=== PATIENT | female | born 2000 | race Caucasian/White ===

== ENCOUNTER 2020-09-03 15:12 | Outpatient (REF) | payer OTHER, SELFPAY ==
--- NOTE | ~2020-09-03 | XR_ITS ---
EXAMINATION: XR CHEST CLINICAL INFORMATION: Epigastric pain COMPARISON: Chest radiographs 04/22/2018 TECHNIQUE: 2 views of the chest were obtained. FINDINGS: The lungs are clear. There is no airspace consolidation, pleural reaction, or effusion. No pneumothorax or pneumomediastinum. No free air beneath the diaphragms. The heart is normal in size. The costophrenic sulci are clear. The hilar and mediastinal contours and bony structures are unremarkable. XR/XR chest 2V IMPRESSION: Unremarkable examination.
[2020-09-03 16:40] LABS: MANUAL DIFF FLAG NO
[2020-09-03 16:51] LABS: Basophils Percent Auto 0.4 % (0-2); Eosinophils Absolute Auto 0.4 X10*3/uL (0.0-0.4); Eosinophils Percent Auto 4.3 % (0-4); Hematocrit 40.6 % (37-47); Hemoglobin 13.2 g/dl (12.0-16.0); Imm Gran Abs Auto 0.02 X10*3/uL (0.00-0.03); Imm Gran Pct Auto 0.2 % (0.0-0.4); Lymphocytes Absolute Auto 1.8 X10*3/uL (1.2-4.9); Lymphocytes Percent Auto 22.8 % (20-40); Mean Corpuscular HGB Conc 32.5 g/dl (31.0-35.0); Mean Corpuscular Hemoglobin 29.1 pg (27.0-33.0); Mean Corpuscular Volume 89.6 fL (80-98); Mean Platelet Volume 12.1 fL (9.4-12.3); Monocytes Absolute Auto 0.6 X10*3/uL (0.1-1.2); Monocytes Percent Auto 7.3 % (2-11); Neutrophils Absolute Auto 5.2 X10*3/uL (2.0-8.3); Platelet Count 216 X10*3/uL (160-400); Red Blood Count 4.53 X10*6/uL (4.20-5.50); Red Cell Distribution Width 12.7 % (11.0-16.0); White Blood Count 8.1 X10*3/uL (4.8-10.8)
[2020-09-03 16:58] LABS: Alanine Aminotransferase 12 U/L (0-31); Albumin Level 4.3 g/dL (3.5-5.0); Alkaline Phosphatase 64 U/L (39-117); Anion Gap 14 (12-20); Aspartate Amino Transferase 17 U/L (5-31); Bilirubin Total 0.3 mg/dL (0.0-1.0); Blood Urea Nitrogen 13 mg/dL (9-16); Calcium 8.9 mg/dL (8.4-10.2); Carbon Dioxide 23 mmol/L (22-29); Chloride 108 mmol/L (96-108); Estimated Glomerular Filt Rate > 60; Glucose Random 85 mg/dL (60-115); Potassium 4.8 mmol/L (3.3-5.1); Sodium 140 mmol/L (135-145); Total Protein 6.9 g/dL (6.5-8.0)
[2020-09-03 17:20] LABS: TSH reflex Free T4 0.96 uIU/mL (0.32-4.0)
== END 2020-09-03 15:13 | disposition home or self-care (01) ==
LOC: HO.HMGCX 15:12
PROVIDERS: Visit Provider Nurse Practitioner Family
DX: R10.13 Epigastric pain (principal)
CPT/HCPCS: 36415; 71046; 80053; 84443; 85025

== ENCOUNTER 2020-11-30 13:41 | Outpatient (REF) | payer OTHER, SELFPAY ==
[2020-11-30 16:34] LABS: MANUAL DIFF FLAG NO
[2020-11-30 16:37] LABS: Basophils Percent Auto 0.3 % (0-2); Eosinophils Absolute Auto 0.2 X10*3/uL (0.0-0.4); Eosinophils Percent Auto 2.5 % (0-4); Hematocrit 41.2 % (37-47); Hemoglobin 13.4 g/dl (12.0-16.0); Imm Gran Abs Auto 0.02 X10*3/uL (0.00-0.03); Imm Gran Pct Auto 0.3 % (0.0-0.4); Lymphocytes Absolute Auto 1.9 X10*3/uL (1.2-4.9); Lymphocytes Percent Auto 23.3 % (20-40); Mean Corpuscular HGB Conc 32.5 g/dl (31.0-35.0); Mean Corpuscular Hemoglobin 28.9 pg (27.0-33.0); Mean Platelet Volume 12.7 fL (9.4-12.3); Monocytes Absolute Auto 0.6 X10*3/uL (0.1-1.2); Monocytes Percent Auto 7.1 % (2-11); Neutrophils Absolute Auto 5.3 X10*3/uL (2.0-8.3); Neutrophils Percent Auto 66.5 % (45-73); Platelet Count 228 X10*3/uL (160-400); Red Blood Count 4.63 X10*6/uL (4.20-5.50); Red Cell Distribution Width 13.2 % (11.0-16.0); White Blood Count 7.9 X10*3/uL (4.8-10.8)
[2020-11-30 17:29] LABS: Vitamin D 25-OH Total 12.7 ng/mL (>30)
[2020-11-30 17:45] LABS: Folate 13.5 ng/mL (> or = 4.0); Vitamin B12 522 pg/mL (200-900)
== END 2020-11-30 13:42 | disposition home or self-care (01) ==
LOC: HO.HMGCLDS 13:41
PROVIDERS: PCP Internal Medicine; Visit Provider Internal Medicine
DX: E55.9 Vitamin D deficiency, unspecified (principal); Z83.49 Family history of other endocrine, nutritional and metabolic diseases
CPT/HCPCS: 36415; 82306; 82607; 82746; 85025

== ENCOUNTER → 2021-01-18 12:38 | Outpatient (BNVA) | payer OTHER, SELFPAY | PROVIDERS: PCP Internal Medicine; Referring Provider Internal Medicine; Visit Provider Nurse Practitioner | DX: R13.10 Dysphagia, unspecified (principal); K59.04 Chronic idiopathic constipation; R14.0 Abdominal distension (gaseous); R10.33 Periumbilical pain; Z79.899 Other long term (current) drug therapy | CPT/HCPCS: 99202 ==

== ENCOUNTER 2021-02-05 08:56 | Outpatient (REF) | payer OTHER, SELFPAY ==
--- NOTE | ~2021-02-05 | US_ITS ---
EXAMINATION: US ABDOMEN COMPLETE CLINICAL INFORMATION: Chronic idiopathic constipation. Right upper quadrant pain. Epigastric pain. GERD. COMPARISON: None TECHNIQUE: Real-time imaging of the abdominal viscera. FINDINGS: PANCREAS: Normal. ABDOMINAL AORTA: The proximal, mid, and distal segments are normal in caliber. INFERIOR VENA CAVA: Visualized portions are normal. LIVER: Normal. The liver is normal in size. The liver contour is normal. Parenchymal echogenicity is normal. No focal hepatic lesion. There is no intrahepatic biliary duct dilatation seen. GALLBLADDER: The gallbladder is unremarkable in appearance. No gallstones identified. No gallbladder wall thickening or pericholecystic fluid identified. Negative sonographic Álvarez's sign. COMMON BILE DUCT: Normal in caliber measuring 0.42 cm in diameter. RIGHT KIDNEY: Normal. No hydronephrosis. No renal calculi or focal parenchymal lesions. The kidney measures 10.5 cm in maximum dimension. LEFT KIDNEY: Normal. No hydronephrosis. No renal calculi or focal parenchymal lesions. The kidney measures 12.2 cm in maximum dimension. SPLEEN: Normal. The spleen measures 8.1 cm in maximum dimension. FREE FLUID: None. US/US abdomen complete IMPRESSION: Unremarkable sonographic imaging of the abdomen.
== END 2021-02-05 08:57 | disposition home or self-care (01) ==
LOC: HO.HMGCX 08:56
PROVIDERS: PCP Internal Medicine; Visit Provider Nurse Practitioner
DX: R13.10 Dysphagia, unspecified (principal); K59.04 Chronic idiopathic constipation
CPT/HCPCS: 76700

== ENCOUNTER 2021-03-19 09:57 | Outpatient (REF) | payer OTHER, SELFPAY ==
--- NOTE | ~2021-03-19 | FL_ITS ---
EXAMINATION: XR UPPER GI SERIES WITH SMALL BOWEL CLINICAL INFORMATION: Chronic idiopathic constipation. COMPARISON: None. TECHNIQUE: Air-contrast upper GI examination with small bowel follow-through. FINDINGS: Preliminary abdominal study demonstrates a nonspecific bowel gas pattern without evidence of dilated large or small bowel loops. Psoas margins are intact. Stool and gas is seen throughout a nondilated colon. No abnormal calcifications identified. No bony abnormalities appreciated. There is normal apposition of the vocal cords while saying E . There is normal elevation of the soft palate while saying candy . Patient drank thin and thick barium and a half-inch diameter barium tablet without difficulty. There is no evidence of gastroesophageal reflux or tracheal aspiration. No cricopharyngeal hypertrophy. No Zenker's diverticulum. The esophagus had normal distensibility without ulceration or persistent stricture. There was noted to be a patulous gastroesophageal junction with some mild transient reflux elicited during the study. The stomach demonstrated normal distensibility without abnormal mass or ulceration. There is no delay in gastric emptying. The duodenal bulb and sweep appear unremarkable. Evaluation of small bowel demonstrated normal mucosal pattern within the jejunum and ileum. No persistent stricture identified. The terminal ileum appeared unremarkable. FLUOROSCOPY TIME: 1.6 minutes DOSE AREA PRODUCT: 5.346 Gy-cm2 (garcia-centimeter squared) FL/FL upper GI small bowel IMPRESSION: Patulous gastroesophageal junction with mild transient reflux. Otherwise unremarkable air-contrast upper GI examination and small bowel follow-through.
== END 2021-03-19 09:58 | disposition home or self-care (01) ==
LOC: HO.XRAY 09:57
PROVIDERS: Visit Provider Nurse Practitioner
DX: R13.10 Dysphagia, unspecified (principal); K59.04 Chronic idiopathic constipation
CPT/HCPCS: 74240; 74248

== ENCOUNTER 2021-04-29 14:00 | Outpatient (REF) | payer OTHER, SELFPAY | END 2021-04-29 14:01 | disposition home or self-care (01) | LOC: HO.LNP 14:00 | PROVIDERS: Visit Provider Nurse Practitioner | DX: R13.10 Dysphagia, unspecified (principal); R10.33 Periumbilical pain; K59.04 Chronic idiopathic constipation; R14.0 Abdominal distension (gaseous); K21.9 Gastro-esophageal reflux disease without esophagitis; R11.0 Nausea | CPT/HCPCS: 87338; 99212 ==

== ENCOUNTER 2021-06-18 12:47 | Outpatient (REF) | payer OTHER, SELFPAY ==
--- NOTE | ~2021-06-18 | XR_ITS ---
EXAMINATION: XR ABDOMEN COMPLETE CLINICAL INDICATION: Chronic idiopathic constipation COMPARISON: None TECHNIQUE: Supine and upright views of the abdomen and pelvis FINDINGS: There is stool throughout the colon. There are no dilated loops of bowel or air-fluid levels to suggest obstruction. There is no evidence of free air. There are no calcifications. Bony structures are normal. XR/XR abdomen min 2V IMPRESSION: Stool throughout the colon suggestive of constipation.
== END 2021-06-18 12:48 | disposition home or self-care (01) ==
LOC: HO.HMGCX 12:47
PROVIDERS: Visit Provider Internal Medicine
DX: K59.04 Chronic idiopathic constipation (principal)
CPT/HCPCS: 74019

== ENCOUNTER → 2021-09-05 13:29 | Outpatient (BNVA) | payer OTHER, SELFPAY | PROVIDERS: PCP Internal Medicine; Referring Provider Internal Medicine; Visit Provider Internal Medicine Gastroenterology | DX: K59.04 Chronic idiopathic constipation (principal); R11.0 Nausea; R10.33 Periumbilical pain; R14.0 Abdominal distension (gaseous); R13.10 Dysphagia, unspecified; K21.9 Gastro-esophageal reflux disease without esophagitis; E55.9 Vitamin D deficiency, unspecified | CPT/HCPCS: 99212 ==

== ENCOUNTER 2021-09-27 14:50 | Outpatient (REF) | payer OTHER, SELFPAY ==
--- NOTE | ~2021-09-27 | XR_ITS ---
EXAMINATION: XR ABDOMEN KUB CLINICAL INDICATION: Constipation COMPARISON: Previous x-ray May 2021 TECHNIQUE: AP view of the abdomen. FINDINGS: There is stool throughout the colon. There are no dilated loops of bowel to suggest obstruction. There is no evidence of free air. No calcifications. Normal bony structures. XR/XR KUB IMPRESSION: Stool throughout the colon. No evidence of obstruction.
== END 2021-09-27 14:51 | disposition home or self-care (01) ==
LOC: HO.XRAY 14:50
PROVIDERS: PCP Internal Medicine; Visit Provider Internal Medicine Gastroenterology
DX: K59.04 Chronic idiopathic constipation (principal)
CPT/HCPCS: 74018

== ENCOUNTER → 2021-10-17 07:26 | Outpatient (BNVA) | payer OTHER, SELFPAY | PROVIDERS: PCP Internal Medicine; Referring Provider Internal Medicine; Visit Provider Internal Medicine Gastroenterology | DX: K59.04 Chronic idiopathic constipation (principal); R14.0 Abdominal distension (gaseous); K21.9 Gastro-esophageal reflux disease without esophagitis; R13.10 Dysphagia, unspecified; R10.33 Periumbilical pain; R11.0 Nausea; Z79.899 Other long term (current) drug therapy | CPT/HCPCS: 99212 ==

== ENCOUNTER 2021-10-21 08:05 | Day surgery (SDC) | payer OTHER, SELFPAY ==
--- NOTE | 2021-10-18 13:56 | HO.ANESPROP2 ---
Documented by User: Richa Garcia NP 10/18/21 13:57 HPI - Anesthesia Eval Consult details Narrative: 20yo F for Colonoscopy [facility] Active Problems Active Problems: All Active Problems (Updated 04/29/21 @ 17:19 by CSASIE Kitchen) Nausea (Acute) Periumbilical abdominal pain (Acute) Abdominal bloating (Acute) Dysphagia (Acute) Chronic idiopathic constipation (Acute) Family history of thyroid disease in mother (Acute) Vitamin D deficiency (Acute) Chronic GERD (Acute) Cough (Acute) Throat irritation (Acute) Past Medical History Medical History Chronic GERD Epigastric pain Family history of thyroid disease in mother Right upper quadrant abdominal pain Vitamin D deficiency Family History Family History Mother Hypothyroidism Surgical History Surgical History No pertinent past surgical history Social History Social History Housing: House Patient Tobacco Use Status: Never used Tobacco e-Cigarette/Vaping Use: Never Used Second Hand Smoke Exposure: No Use of substances other than those prescribed or required for medical reasons: No Are you DNR?: No Advance Directives: No Advance Directives Information Provided: Yes Recently lost weight without trying: No Nutrition Risks: No Nutritional Risk service: No Current occupational status: employed and student Current occupational exposures/hazards: No Meds Allergies Allergy/AdvReac Type Severity Reaction Status Date / Time No Known Allergies Allergy Verified 10/17/21 07:31 Exam Exam Date and Time: October 18, 2021 1356 Assessment and Plan Assessment Anesthesia Assessment: Chart Reviewed Documented by User: Carin Maya MD 10/21/21 09:41 PMFSH Past Medical History Medical History Chronic GERD Epigastric pain Family history of thyroid disease in mother Right upper quadrant abdominal pain Vitamin D deficiency Family History Family History Mother Hypothyroidism Family history of problems with anesthesia: No Surgical History Surgical History No pertinent past surgical history History of Problems with Anesthesia: No Social History Social History Housing: House Patient Tobacco Use Status: Never used Tobacco e-Cigarette/Vaping Use: Never Used Second Hand Smoke Exposure: No Use of substances other than those prescribed or required for medical reasons: No Are you DNR?: No Advance Directives: No Advance Directives Information Provided: Yes Recently lost weight without trying: No Nutrition Risks: No Nutritional Risk service: No Current occupational status: employed and student Current occupational exposures/hazards: No Meds Allergies Allergy/AdvReac Type Severity Reaction Status Date / Time No Known Allergies Allergy Verified 10/17/21 07:31 Exam Airway Mallampati Class: II TM Dist: >3cm Neck ROM: Full Heart: rrr Lungs: cta Assessment and Plan Assessment Anesthesia Assessment: Anesthesia Plan Discussed and Chart Reviewed Final Anesthetic Review Family History of Problems with Anesthesia: No History of Problems with Anesthesia: No NPO: Yes ASA Class: III Final Preanesthetic Review: No Changes in Pt Med Stat, Meds/Allgs Chart Reviewed and Consent Obtained/Reviewed Patient Risk: Intermediate Procedure Risk: Intermediate Anesthetic Plan Anesthetic Plan: MAC: Disposition: Standard PACU
[2021-10-21 08:29] VITALS: BMI 21.7
[2021-10-21 08:39] LABS: UPreg QC Valid YES; Urine Pregnancy NEGATIVE (NEGATIVE)
[2021-10-21 08:44] VITALS: BP 134/78; PULSE 112; RESP 16; TEMP 37.8; O2SAT 100
[2021-10-21 08:56] VITALS: PULSE 98
[2021-10-21] MEDS: Lactated Ringers 1,000 ML 100 ML IVCONT (08:56)
--- NOTE | 2021-10-21 09:34 | MHC.SHP ---
Pre-Procedural Eval Section A Date of Service: 10/21/21 The patient is an INPATIENT: No Changes since office visit: No Cold of Flu in the past 2 weeks, No New Medical Problems and No Changes in Medication The History & Physical has been completed within 30 days and I have reviewed it.: Yes Section B Chief Complaint: Periumbilical pain,nausea,constipation,abd distens Allergies: Allergies Allergy/AdvReac Type Severity Reaction Status Date / Time No Known Allergies Allergy Verified 10/17/21 07:31 Plan I have reviewed the history and physical and performed a pertinent physical examination on my patient. No changes have occurred unless specified.
--- NOTE | 2021-10-21 09:43 | P.OP_ITS ---
Operative Note Operative Note Date of Service: 10/21/21 Narrative: Pre-op diagnosis: Chronic constipation Post-op diagnosis:?other (Colon polyp, hemorrhoids) Procedure: COLONOSCOPY TILL CECUM WITH BIOPSIES AND SNARE POLYPECTOMY Consent: Indications for the procedure and potential complications of bleeding, perforation, reaction to medications and missed diagnosis were discussed with the patient and informed consent was obtained. Instrument: Olympus PCF H 190 L variable stiffness pediatric colonoscope Monitoring: Vital signs and clinical assessment, intermittent blood pressure monitoring, continuous EKG monitoring, Pulse oximetry and Carbon Dioxide monitoring were done throughout the procedure. Colon withdrawl time was 34 minutes. Procedure: The patient was placed in the left lateral decubitis position and pre-procedure medications were administered. After a digital rectal examination of the ano-rectum, the video colonoscope was inserted into the rectum and advanced through the colon to the cecum. The colonoscope was slowly withdrawn in a retrograde panoramic fashion and the colon mucosa was carefully examined including a retroflexed view of the rectum. Findings and interventions are described below. Procedure Difficulty:? Colon was long and tortuous and there was some loop formation - no maneuvers were referred Findings: Terminal Ileum: Not evaluated Cecum:? Normal Ascending Colon:? Normal Transverse Colon:? Normal Descending Colon:? Normal Sigmoid Colon:? A 7-8 mm sessile polyp removed with a cold snare. Rectum:? Normal Ano-rectum:? Small internal hemorrhoids Colon preparation: Excellent ? Impression and Post Procedure Diagnosis: Colonoscopy Findings: One small polyp removed Biopsies were obtained from the distal rectum to check for Hirschsprung's disease Small hemorrhoids on retroflexed exam. Plan: Patient has an appointment on 11/11/21 in the GI Clinic with Lavinia Yanez M.D. Continue Linzess 290 mcg daily for constipation Repeat Colonoscopy interval based on path results - in 5 years if polyps are adenomatous and 10 years if polyps are hyperplastic. Above findings were reviewed with the patient and colon polyps handout was given in the discharge area Surgeon: Lavinia Yanez MD Anesthesia:?MAC (Dr Bocanegra) Was an Director Strategic Account Management used for this Procedure?:?No Estimated blood loss (mL):?0 Pathology:?other ( A: sigmoid polyp? B: rectal biopsy) Condition:?stable Disposition:?PACU
[2021-10-21 10:33] VITALS: BP 98/62; PULSE 75; RESP 16; TEMP 36.4; O2SAT 100
[2021-10-21 10:48] VITALS: BP 113/74; PULSE 77; RESP 16; TEMP 36.4; O2SAT 100
== END 2021-10-21 11:15 | disposition home or self-care (01) ==
PROVIDERS: Nurse Practitioner; PCP Internal Medicine; Visit Provider Internal Medicine Gastroenterology
PROC: 0DJD8ZZ Inspection of Lower Intestinal Tract, Via Natural or Artificial Opening Endoscopic (ICD-10-PCS; CPT 45378; principal; 2021-10-21 09:20)
DX: K59.04 Chronic idiopathic constipation (principal); K63.5 Polyp of colon; K64.8 Other hemorrhoids; K21.9 Gastro-esophageal reflux disease without esophagitis; R14.0 Abdominal distension (gaseous); R13.10 Dysphagia, unspecified; R11.0 Nausea; R10.33 Periumbilical pain; E55.9 Vitamin D deficiency, unspecified; Z79.899 Other long term (current) drug therapy
CPT/HCPCS: 45385; 45380; 81025; 88305; 88342

== ENCOUNTER → 2021-11-11 07:14 | Outpatient (BNVA) | payer OTHER, SELFPAY | PROVIDERS: PCP Internal Medicine; Referring Provider Internal Medicine; Visit Provider Internal Medicine Gastroenterology | DX: K59.04 Chronic idiopathic constipation (principal); K21.9 Gastro-esophageal reflux disease without esophagitis; R10.33 Periumbilical pain; R11.0 Nausea; R14.0 Abdominal distension (gaseous); E55.9 Vitamin D deficiency, unspecified; Z79.899 Other long term (current) drug therapy | CPT/HCPCS: 99212 ==

== ENCOUNTER 2022-10-23 07:27 | Outpatient (AMB) | payer OTHER, SELFPAY ==
--- NOTE | 2022-10-23 07:35 | A.OFFVIS_ITS ---
Intake Vital Signs 10/23/22 07:39 Height 5 ft 3 in Weight 124 lb BMI 22.0 BP 107/64 Blood Pressure Location Lt brachial Position Sitting Pulse 93 Intake Visit Reasons: follow up Intake Note: Patient follow up for abdominal bloating. Patient cc: abdominal bloating with some pain, and GERD on and off with burning sensation. Denies any other GI issues. Dynamic Balancer Set Up Worker Required: No Accompanied by: Father Allergies No Known Allergies Allergy (Verified 10/23/22 07:37) Medication List - Last Reconciled 10/23/22 by Lavinia Yanez MD cholecalciferol (vitamin D3) 250 mcg PO 2XW 90 days famotidine 20 mg PO BID 30 days linaclotide (Linzess) 290 mcg PO QAM 30 days simethicone (Gas Relief 80 (simethicone)) 80 mg PO TID-QID PRN 30 days HPI follow up HPI Details GI clinic visit for this 20 year old [place] female here for FU of chronic constipation. Pt has been followed by Connie Lynn since 12/[facility] Reviewed - normal CBC, TSH, Vitamin B12 and low Vitamin D IMAGING STUDIES:? 09/27/21 FARIHA SHOWED: There is stool throughout the colon. There are no dilated loops of bowel to suggest obstruction. There is no evidence of free air. No calcifications. Normal bony structures. 05/2021 KUB showed: There is stool throughout the colon. There are no dilated loops of bowel or air-fluid levels to suggest obstruction. There is no evidence of free air. There are no calcifications. Bony structures are normal. 02/2021 UGISBFT showed: Patulous gastroesophageal junction with mild transient reflux. Otherwise unremarkable air-contrast upper GI examination and small bowel follow-through.? ENDOSCOPIC STUDIES:? 10/21/21 COLONOSCOPY SHOWED: One small polyp removed Biopsies were obtained from the distal rectum to check for Hirschsprung's disease Small hemorrhoids on retroflexed exam. Plan:? Repeat Colonoscopy interval based on path results - in 5 years if polyps are adenomatous and 10 years if polyps are hyperplastic. TODAY'S VISIT: Pt is accompanied by her Dad. Notes persistent abdominal bloating even if she empties her bowel. Having a bowel movement every 3 days with hard stools. Takes Linzess 3-4 times a week (forgets to take it on some days) Colonoscopy results reviewed. Constipation is better. Has a BM daily to every other day. Continues to have some bloating though less than before. Notes intermittent heartburn - tried Omeprazole in the past and it was'nt helpful. Has not tried Pepcid or famotidine. Feels a little better since she started taking Linaclotide. Her Mom tried to use an enema and pt refused. Has not tried a suppository. Was having a BM every 3 days (not emptying out completeley) when she started taking the Linzess Bloating had improved. Constipation is worse when she is at school and associates worsening co nstipation with increased stress and anxiety. PAST VISIT: Constipation for the past 6 months. Hx of regurgitation after feeding as a baby. Improved after 6 months. Did not gain weight. She was having a small BM every 3 days.5 days ago with incomplete evacuaton. Notes difficulty expelling the stool. Has a BM every 2-3 weeks despite taking the Senna. Took enemas 2-3 times (worked 1st 2 times and did not work the 3rd time). Taking Senna intermittently. Has intermittent heartburn.Notes vomiting when she has Migraine BOONE Has tried lactulose (no response), senna and Miralax with partial response. Enemas worked best. Patient denies symptoms of dysphagia, nausea, change in appetite or weight.? Denies recent change in bowel habits, diarrhea, or rectal bleeding. Notes black stools when she is constipated for a long time. Patient denies major cardiac or pulmonary problems, loud snoring or sleep apnea Denies having any surgeries in the past. Denies being on chronic anticoagulation. A brother has chronic constipation. Patient denies known family history of colon polyps, colon cancer or other GI malignancies. A paternal aunt diagnosed with intestinal cancer at 75 yrs. PAST GI HISTORY BY REVIEW OF MEDICAL RECORDS: Last seen by Connie Lynn NP in Apr, 2021: She is here today with her father. She did not get the senna, she was taking her brother's Miralax - but it is not helping her enough. While she tries to move her bowels several times a day. only tiny amts come out. She is still having bloating and nausea.? Her lack of series bowel movement is why she did not return the H pylori stool earlier but they did give it to the lab today. I think the senna was not covered by insurance. I write it down for her father, and explain the tests and my reasoning for the treatment plan. This takes some education, as they just want to know what is wrong with her colon. I explain that this is hereditary, the colon may be longer: but there is no severe pathology as evidenced by the small bowel follow through study. They ask about the GERD and I explain this. Again, PPI therapy made her nauseated. We could consider H2 going forward, but getting the bowels moving likely will improve this given the low level of reflux. If we get her bowels moving and her nausea is not improved, I explain we may need to do an EGD. Her father says they have sought help from many providers, so there is a level of frustration in the last of progress in treating her. This is very life limiting for her, and I am very sympathetic to this and aware of the impact on her life and?school [facility] Medical History Chronic GERD Epigastric pain Family history of thyroid disease in mother Right upper quadrant abdominal pain Vitamin D deficiency Surgical History Hx of colonoscopy No pertinent past surgical history Family History Mother Hypothyroidism Social History Housing: House Patient Tobacco Use Status: Never used Tobacco e-Cigarette/Vaping Use: Never Used Second Hand Smoke Exposure: No service: No Current occupational status: employed and student Current occupational exposures/hazards: No Review of Systems Const All systems reviewed & are unremarkable except as noted in HPI and below Physical Exam Vital Signs: Last Vital Signs Pulse 93 10/23/22 07:39 BP 107/64 10/23/22 07:39 BMI result Body Mass Index 22.0 Const General: healthy appearing and no acute distress Nutritional Appearance: average body habitus Orientation/consciousness: patient oriented x3 Limitations: no limitations HEENT Head: Yes normal to inspection Ears: hearing grossly normal bilaterally Eyes Sclerae: sclerae normal Pupils: Equal, round and reactive pupils present Neck Neck: Yes normal visual inspection Chest Chest palpation & inspection: normal inspection of the chest Resp Effort & Inspection: normal respiratory effort Auscultation: clear to auscultation bilaterally Cardio Palpation: normal PMI Rate: regular rate Rhythm: regular rhythm Heart sounds: S1 normal heart sound present, S2 normal heart sound present and no murmurs GI Palpation (GI): Soft to palpation, nontender and No hepatosplenomegaly present Auscultation: normal bowel sounds Rectal Exam - Female: deferred Skin General skin exam: no rashes or lesions noted Neuro General: patient oriented x3, gait normal and moves all extremities Cranial nerves: Yes Equal, round and reactive pupils present Psych Appearance: grossly normal Mental Status: mental status grossly normal Assessment & Plan Assessment & Plan (1) Chronic GERD: Code(s): K21.9 - Gastro-esophageal reflux disease without esophagitis (2) Vitamin D deficiency: Code(s): E55.9 - Vitamin D deficiency, unspecified (3) Chronic idiopathic constipation: Code(s): K59.04 - Chronic idiopathic constipation (4) Abdominal bloating: Code(s): R14.0 - Abdominal distension (gaseous) Plan 21 YF followed in GI for nausea, GERD, abdominal bloating and Constipation for t he past 6 months. Hx of regurgitation after feeding as a baby which improved after 6 months. Notes difficulty expelling the stool. Has intermittent heartburn.? Notes vomiting when she has Migraine BOONE Has tried lactulose (no response), senna and Miralax with partial response. Enemas worked best. Chronic constipation likely due to colonic inertia or dyssynergic defecation.? Sitz marker study was ordered and KUB was performed. She was advised to increase Linzess to 290 mcg daily and use suppositories prn.? Had a BM every 2-3 weeks despite taking the Senna - improved to daily/every other day after taking Linzess. Patient advised to switch to lactated milk for 2-3 weeks to see if bloating resolves.? If she continued to have symptoms, she was advised to follow a FODMAP diet - handout on FODMAP diet was provided to the patient. 10/23/22 Pt has graduated and is looking for a job. Advised to take Linzess daily and schedule an anorectal manometry at [facility] to rule out dyssynergic defecation/outlet delay. FU in 4 months Orders: Referrals Gastroenterology Referral K59.04 - Chronic idiopathic constipation Medications: New bisacodyl (Dulcolax (bisacodyl)) Take 2 tablets at 12 pm 10 mg (2 x 5 mg) PO ONCE 2 tabs 0RF 1 day polyethylene glycol 3350 (Miralax) Mix Miralax with 64 oz(8 cups) of Crystal light. Take 2 tablets of Dulcolax qt 12 pm. Wait to have your 1st bowel movement, then begin drinking Miralax. Drink a glass of Miralax every 10-15 minutes until you are finished. You will drink at least another 4 cups of clear liquid of your choice over the next 2 hours. Please drink as many clear liquids as possible 17 grams PO DAILY 238 grams 0RF 1 day Coding Level of Care Code Est Pt Level 4 (46497) Diagnoses Chronic GERD K21.9 Vitamin D deficiency E55.9 Chronic idiopathic constipation K59.04 Abdominal bloating R14.0 Time Spent (min) 25
[2022-10-23 07:39] VITALS: BP 107/64; PULSE 93; BMI 22.0
== END 2022-10-23 08:22 | disposition home or self-care (01) ==
PROVIDERS: Visit Provider Internal Medicine Gastroenterology
DX: K21.9 Gastro-esophageal reflux disease without esophagitis (principal); E55.9 Vitamin D deficiency, unspecified; K59.04 Chronic idiopathic constipation; R14.0 Abdominal distension (gaseous)
CPT/HCPCS: 99214

== ENCOUNTER → 2022-10-23 07:27 | Outpatient (BNVA) | payer OTHER, SELFPAY | PROVIDERS: Visit Provider Internal Medicine Gastroenterology | DX: K21.9 Gastro-esophageal reflux disease without esophagitis (principal); K59.04 Chronic idiopathic constipation; E55.9 Vitamin D deficiency, unspecified; R14.0 Abdominal distension (gaseous) | CPT/HCPCS: 99212 ==

== ENCOUNTER 2023-01-13 10:26 | Outpatient (AMB) | payer OTHER, SELFPAY ==
[2023-01-13 10:33] VITALS: BP 118/66; PULSE 106; O2SAT 99; BMI 21.8
--- NOTE | 2023-01-13 10:33 | A.OFFPC_ITS ---
Vital Signs 01/13/23 10:33 Height 5 ft 3 in Weight 123 lb 4 oz BMI 21.8 BP 118/66 Blood Pressure Location Rt brachial Position Sitting Pulse 106 H Pulse Source Pulse Oximeter Pulse Oximetry (%) 99 Oxygen Delivery Method Room Air Intake Visit Reasons: Physical Exam NEEDS PHQ9 + THRIVE Allergies No Known Allergies Allergy (Verified 10/23/22 07:37) Medication List - Last Reconciled 01/13/23 by Momo Wright MD bisacodyl (Dulcolax (bisacodyl)) 10 mg (2 x 5 mg) PO ONCE 1 day cholecalciferol (vitamin D3) 250 mcg PO 2XW 90 days famotidine 20 mg PO BID 30 days linaclotide (Linzess) 290 mcg PO QAM 30 days polyethylene glycol 3350 (Miralax) 17 grams PO DAILY 1 day simethicone (Gas Relief 80 (simethicone)) 80 mg PO TID-QID PRN 30 days Tobacco use date assessed: 11/30/20 HPI Physical Exam NEEDS PHQ9 + THRIVE HPI Details Patient is 22-year-old female came in today for her 1st initial physical exam and establish care I see that she is established with gastroenterology Dr. [facility] for chronic epigastric discomfort She was prescribed omeprazole which caused nausea and vomiting so she did not take that She does have full motor Balbir in her medication list which was prescribed by electrocardiograph operator last year but patient is not taking it Explained to patient that it is important that she take the medication as prescribed I have sent famotidine 20 mg once a day she has an appointment coming up with the gastroenterology. Patient does admit to feeling stress because of her job. And anxious. She agree to take medication today, I have sent Lexapro 5 mg patient is to start taking that 1 every day She is also complaining of feeling tired after walking short distance Her father is here as well who complains that patient is always telling that she is tired. Upon further questioning patient told me that she does have a heavy menstrual cycle which is chronic But she does not want to see OBGYN. I have ordered labs for the patient we will monitor B12 folate iron CBC and metabolic profile along with thyroid. She is to return in 3 weeks for follow-up appointment [facility] Medical History Family history of thyroid disease in mother Vitamin D deficiency Chronic GERD Right upper quadrant abdominal pain Epigastric pain Surgical History Hx of colonoscopy No pertinent past surgical history Family History Mother Hypothyroidism Social History Housing: House Patient Tobacco Use Status: Never used Tobacco e-Cigarette/Vaping Use: Never Used Second Hand Smoke Exposure: No service: No Current occupational status: employed and student Current occupational exposures/hazards: No Questionnaire PHQ-9 Over the last 2 weeks, how often have you been bothered by any of the following problems? 1. Little interest or pleasure in doing things: not at all 2. Feeling down, depressed, or hopeless: not at all 3. Trouble falling or staying asleep, or sleeping too much: not at all 4. Feeling tired or having little energy: more than half the days 5. Poor appetite or overeating: not at all 6. Feeling bad about yourself - or that you are a failure or have let yourself or your family down: not at all 7. Trouble concentrating on things, such as reading the newspaper or watching television: not at all 8. Moving or speaking so slowly that other people could have noticed. Or the opposite - being so fidgety or restless that you have been moving around a lot more than usual: not at all 9. Thoughts that you would be better off or of hurting yourself in some way: not at all Total score: 2 Depression Screening Interpretation: Negative Depression Screening Done: Yes 10269 - PHQ-9 Billing: Yes Source: Developed by Drs. Didier Brooks, Calli Ochoa, Rodrigo Crespo and colleagues, with an educational gopal from [employer]. Thrive Questionnaire Date Thrive assessed: 01/13/23 I am a: Patient What is your living situation today?: I have a steady place to live Within the past 12 months, did the food you bought not last and you didn't have the money to get more?: Never true Within the past 12 months, did you worry whether your food would run out before you got money to buy more?: Never true Do you have trouble paying for medicines?: No Do you have trouble getting transportation to medical appointments?: No Do you have trouble paying your heating and electricity bill?: No Do you have trouble taking care of your child, family member or friend?: No Do you have trouble with day-to-day activities such as bathing, preparing meals, shopping, managing finances, etc.?: No Are you currently unemployed and looking for a job?: No Are you interested in more education?: No JUSTA-7 AMB Questionnaire JUSTA-7 Date JUSTA - 7 assessed: 01/13/23 Feeling nervous, anxious, or on edge: 2 = More than half the days Not being able to stop or control worryin = More than half the days Worrying too much about different things: 1 = Several days Trouble relaxin = Several days Being so restless that it is hard to sit still: 2 = More than half the days Becoming easily annoyed or irritable: 1 = Several days Feeling afraid as if something awful might happen: 1 = Several days Total JUSTA-7 score (0-4 normal; 5-9 mild; 10-14 moderate; 15-21 severe): 10 Source: Developed by Drs. Didier Brooks, Calli Ochoa, Rodrigo Crespo and colleagues, with an educational gopal from [employer]. JUSTA-7 Assessment Billing JUSTA-7 Assessment Tool: JUSTA-7 Assessment 41500 Review of Systems Const Denies chills, Denies fever(s) and Denies headache(s) Eyes Denies blurry vision ENT Denies headache(s), Denies nasal discharge, Denies nasal obstruction, Denies odynophagia and Denies sinus pain Card Denies chest pain at rest and Denies chest pain with activity Resp Denies cough and Denies hemoptysis GI Denies diarrhea, Denies odynophagia, Denies vomiting and Denies hematemesis Reports as per HPI Musc Denies abnormal gait Skin/Breast Reports as per HPI Neuro Denies Neuro-related abnormal movements, Denies Abnormal speech present, Denies abnormal gait, Denies headache(s) and Denies Sensory deficit (Neuro) Psych Denies mood swings and Denies paranoia Endo Reports as per HPI Sonu/Lymph Reports as per HPI Aller/Immun Reports as per HPI Physical exam (Primary Care) Vital Signs: Last Vital Signs Pulse 106 H 01/13/23 10:33 BP 118/66 01/13/23 10:33 Pulse Ox 99 01/13/23 10:33 Oxygen Delivery Method Room Air 01/13/23 10:33 BMI result Body Mass Index 21.8 Tobacco/Smoking Status: Tobacco use Status Tobacco use date assessed 11/30/20 01/13/23 10:36 Patient Tobacco Use Status Never used Tobacco 01/13/23 10:36 e-Cigarette/Vaping Use Never Used 01/13/23 10:36 PHQ-9: PHQ-9 Score PHQ-9: Total score 2 01/13/23 11:42 Depression Screening Interpretation: Negative Thrive Assessment: Date of Thrive Assessment Date Thrive assessed 01/13/23 01/13/23 10:38 Const General: cooperative, comfortable and no acute distress Orientation/consciousness: patient oriented x3 HENMT Head: Yes normocephalic and Yes atraumatic Eyes General: appearance normal, both eyes and all related structures Pupils: Equal, round and reactive pupils present EOM: EOMs intact bilaterally Neck Neck: Yes supple and No lymphadenopathy Thyroid: Thyroid normal Lymphatic: no lymphadenopathy noted Resp Effort & Inspection: normal respiratory effort and able to speak in complete sentences Auscultation: clear to auscultation bilaterally Cardio Heart sounds: S1 normal heart sound present and S2 normal heart sound present GI Palpation (GI): Soft to palpation and nontender Auscultation: normal bowel sounds General: Yes no CVA tenderness Back/Spine/Pelvis Back: no CVA tenderness Skin General skin exam: elasticity normal and turgor normal Neuro General: patient oriented x3 and gait normal Cranial nerves: Yes Equal, round and reactive pupils present Speech: No Abnormal speech present Sensory Exam: No Sensory deficit (Neuro) Coordination: tandem gait normal and Romberg test negative Extrem General: Yes normal exam except as noted and No edema Assessment and Plan Assessment & Plan (1) Encounter for general adult medical examination with abnormal findings: Code(s): Z00.01 - Encounter for general adult medical examination with abnormal findings (2) Chronic idiopathic constipation: Code(s): K59.04 - Chronic idiopathic constipation (3) Chronic GERD: Code(s): K21.9 - Gastro-esophageal reflux disease without esophagitis (4) Stress: Code(s): F43.9 - Reaction to severe stress, unspecified (5) Anxiety, generalized: Code(s): F41.1 - Generalized anxiety disorder (6) Tiredness: Code(s): R53.83 - Other fatigue (7) Lack of stamina: Code(s): R53.83 - Other fatigue (8) Dysfunctional uterine bleeding: Code(s): N93.8 - Other specified abnormal uterine and vaginal bleeding Plan Patient is 22-year-old female came in today for her 1st initial physical exam and establish care I see that she is established with gastroenterology Dr. [facility] for chronic epigastric discomfort She was prescribed omeprazole which caused nausea and vomiting so she did not take that She does have full motor Balbir in her medication list which was prescribed by electrocardiograph operator last year but patient is not taking it Explained to patient that it is important that she take the medication as prescribed I have sent famotidine 20 mg once a day she has an appointment coming up with the gastroenterology. Patient does admit to feeling stress because of her job. And anxious. She agree to take medication today, I have sent Lexapro 5 mg patient is to start taking that 1 every day She is also complaining of feeling tired after walking short distance Her father is here as well who complains that patient is always telling that she is tired. Upon further questioning patient told me that she does have a heavy menstrual cycle which is chronic But she does not want to see OBGYN. I have ordered labs for the patient we will monitor B12 folate iron CBC and metabolic profile along with thyroid. She is to return in 3 weeks for follow-up appointment Orders: Orders Complete Blood Count Auto Diff Today F41.1 - Generalized anxiety disorder, F43.9 - Reaction to severe stress, unspecified, K21.9 - Gastro-esophageal reflux disease without esophagitis, K59.04 - Chronic idiopathic constipation, Z00.01 - Encounter for general adult medical examination with abnormal findings Comprehensive Atkins. Panel Fast Today F41.1 - Generalized anxiety disorder, F43.9 - Reaction to severe stress, unspecified, K21.9 - Gastro-esophageal reflux disease without esophagitis, K59.04 - Chronic idiopathic constipation, Z00.01 - Encounter for general adult medical examination with abnormal findings Vitamin D 25-OH (D2 and D3) Today F41.1 - Generalized anxiety disorder, F43.9 - Reaction to severe stress, unspecified, K21.9 - Gastro-esophageal reflux disease without esophagitis, K59.04 - Chronic idiopathic constipation, Z00.01 - Encounter for general adult medical examination with abnormal findings Vitamin B12 Today F41.1 - Generalized anxiety disorder, F43.9 - Reaction to severe stress, unspecified, K21.9 - Gastro-esophageal reflux disease without esophagitis, K59.04 - Chronic idiopathic constipation, Z00.01 - Encounter for general adult medical examination with abnormal findings TSH reflex Free T4 Today F41.1 - Generalized anxiety disorder, F43.9 - Reaction to severe stress, unspecified, K21.9 - Gastro-esophageal reflux disease without esophagitis, K59.04 - Chronic idiopathic constipation, Z00.01 - Encounter for general adult medical examination with abnormal findings Folate Today R53.83 - Other fatigue Lipid Panel Today F41.1 - Generalized anxiety disorder, F43.9 - Reaction to severe stress, unspecified, K21.9 - Gastro-esophageal reflux disease without esophagitis, K59.04 - Chronic idiopathic constipation, Z00.01 - Encounter for general adult medical examination with abnormal findings Ferritin Today F41.1 - Generalized anxiety disorder, F43.9 - Reaction to severe stress, unspecified, K21.9 - Gastro-esophageal reflux disease without esophagitis, K59.04 - Chronic idiopathic constipation, Z00.01 - Encounter for general adult medical examination with abnormal findings Medications: New escitalopram oxalate (Lexapro) 5 mg PO DAILY 90 tabs 0RF Changed From famotidine 20 mg PO BID 30 days 60 tabs 3RF To famotidine 20 mg PO ONCE 30 tabs 0RF 30 days Coding Level of Care Code New Pt Prev Care 18-39yr(22098 Diagnoses Encounter for general adult medical examination with abnormal findings Z00.01 Chronic idiopathic constipation K59.04 Chronic GERD K21.9 Stress F43.9 Anxiety, generalized F41.1 Tiredness R53.83 Lack of stamina R53.83 Dysfunctional uterine bleeding N93.8 Additional Codes JUSTA-7 Assessment Billing - JUSTA-7 Assessment Tool: JUSTA-7 Assessment 00932 ([id number])
== END 2023-01-13 12:15 | disposition home or self-care (01) ==
PROVIDERS: PCP Internal Medicine; Visit Provider Internal Medicine
DX: Z00.00 Encounter for general adult medical examination without abnormal findings (principal); K59.04 Chronic idiopathic constipation; K21.9 Gastro-esophageal reflux disease without esophagitis; F43.9 Reaction to severe stress, unspecified; F41.1 Generalized anxiety disorder; R53.83 Other fatigue; N93.8 Other specified abnormal uterine and vaginal bleeding; Z83.49 Family history of other endocrine, nutritional and metabolic diseases; E55.9 Vitamin D deficiency, unspecified
CPT/HCPCS: 99385

== ENCOUNTER 2023-01-17 11:28 | Outpatient (REF) | payer OTHER, SELFPAY ==
[2023-01-17 13:43] LABS: MANUAL DIFF FLAG NO
[2023-01-17 13:45] LABS: Basophils Percent Auto 0.7 % (0-2); Eosinophils Absolute Auto 0.4 X10*3/uL (0.0-0.4); Eosinophils Percent Auto 6.1 % (0-4); Hematocrit 41.3 % (37.0-47.0); Hemoglobin 13.4 g/dl (12.0-16.0); Imm Gran Abs Auto 0.01 X10*3/uL (0.00-0.03); Imm Gran Pct Auto 0.2 % (0.0-0.4); Lymphocytes Absolute Auto 1.6 X10*3/uL (1.2-4.9); Lymphocytes Percent Auto 28.3 % (20-40); Mean Corpuscular HGB Conc 32.4 g/dl (31.0-35.0); Mean Corpuscular Hemoglobin 29.8 pg (27.0-33.0); Mean Platelet Volume 12.2 fL (9.4-12.3); Monocytes Absolute Auto 0.4 X10*3/uL (0.1-1.2); Monocytes Percent Auto 6.6 % (2-11); Neutrophils Absolute Auto 3.3 x10*3/uL (2.0-8.3); Neutrophils Percent Auto 58.1 % (45-73); Platelet Count 211 X10*3/uL (160-400); Red Blood Count 4.49 X10*6/uL (4.20-5.50); Red Cell Distribution Width 13.1 % (11.0-16.0); White Blood Count 5.8 X10*3/uL (4.8-10.8)
[2023-01-17 14:03] LABS: Alanine Aminotransferase 9 U/L (0-31); Albumin Level 4.3 g/dL (3.5-5.0); Alkaline Phosphatase 56 U/L (39-117); Anion Gap 15 (12-20); Aspartate Amino Transferase 16 U/L (5-31); Bilirubin Total 0.6 mg/dL (0.0-1.0); Blood Urea Nitrogen 14 mg/dL (9-16); Calcium 9.6 mg/dL (8.4-10.2); Carbon Dioxide 22 mmol/L (22-29); Chloride 107 mmol/L (96-108); Cholesterol 150 mg/dL (<200); Estimated Glomerular Filt Rate > 60; Glucose Fasting 88 mg/dL (60-99); HDL Cholesterol 50 mg/dL (>40); LDL Cholesterol Calculated 88 mg/dL (<100); Potassium 4.4 mmol/L (3.3-5.1); Sodium 140 mmol/L (135-145); Total Protein 7.4 g/dL (6.5-8.0); Triglycerides 64 mg/dL (<150)
[2023-01-17 14:19] LABS: Ferritin 37 ng/mL (10-122); TSH reflex Free T4 0.73 uIU/mL (0.32-4.0)
[2023-01-17 14:32] LABS: Folate 11.8 ng/mL (> or = 4.0); Vitamin B12 246 pg/mL (200-900)
[2023-01-21 13:45] LABS: Vitamin D 25-OH, D2 <4 ng/mL; Vitamin D 25-OH, D3 22 ng/mL; Vitamin D 25-OH, Total 22 ng/mL (30-100)
== END 2023-01-17 11:29 | disposition home or self-care (01) ==
LOC: HO.HMGCLDS 11:28
PROVIDERS: PCP Internal Medicine; Visit Provider Internal Medicine
DX: Z00.01 Encounter for general adult medical examination with abnormal findings (principal); K59.04 Chronic idiopathic constipation; K21.9 Gastro-esophageal reflux disease without esophagitis; F43.9 Reaction to severe stress, unspecified; F41.1 Generalized anxiety disorder; R53.83 Other fatigue
CPT/HCPCS: 36415; 80053; 80061; 82306; 82607; 82728; 82746; 84443; 85025

== ENCOUNTER 2023-02-03 10:25 | Outpatient (AMB) | payer OTHER, SELFPAY ==
[2023-02-03 10:27] VITALS: BP 110/70; PULSE 115; O2SAT 98; BMI 22.2
--- NOTE | 2023-02-03 10:28 | A.OFFPC_ITS ---
Vital Signs 02/03/23 10:27 Height 5 ft 3 in Weight 125 lb 8 oz BMI 22.2 BP 110/70 Blood Pressure Location Lt brachial Position Sitting Pulse 115 H Pulse Source Pulse Oximeter Pulse Oximetry (%) 98 Intake Visit Reasons: 3 week follow up Housing Inspectors Required: No Accompanied by: Self / Same As Patient Allergies Ecitalopram Adverse Reaction (Mild, Uncoded 02/03/23 10:51) Dizziness Medication List - Last Reconciled 02/03/23 by Momo Wright MD bisacodyl (Dulcolax (bisacodyl)) 10 mg (2 x 5 mg) PO ONCE 1 day cholecalciferol (vitamin D3) 250 mcg PO 2XW 90 days escitalopram oxalate (Lexapro) 5 mg PO DAILY famotidine 20 mg PO ONCE 30 days linaclotide (Linzess) 290 mcg PO QAM 30 days polyethylene glycol 3350 (Miralax) 17 grams PO DAILY 1 day simethicone (Gas Relief 80 (simethicone)) 80 mg PO TID-QID PRN 30 days Tobacco use date assessed: 02/03/23 Dental Screening Dental Screen Date: 02/03/23 Did you have a dental visit in the last 12 months?: Yes Did you have a dental problem in the last 6 months where you did not have access to dental care?: No Was dental information given to patient?: Patient has dentist HPI 3 week follow up HPI Details Patient is 22-year-old female came in today for follow-up appointment Labs done recently reviewed with the patient her hemoglobin is within normal range TSH normal range Kidney function liver function intact Vitamin-D level is slightly low, for that I have recommended that she start taking supplement Chronic constipation: Patient has seen gastroenterology and was given script for Linzess which she has not picked up We talked about the importance of bowel movement It is highly important that patient regulate her bowels She is also not drinking enough water I would recommend to start with 1 glass in the morning on empty stomach and 6 classes during the day Exercise is also very important if she spent energy she will generate more energy in her body patient does not do any exercise Anxiety: I gave her script for Escitalopram 5 mg last time patient says that she only took it for 5 days but felt that her brain was foggy and started feeling dizzy so she stopped I have sent buspirone this time she may take that as needed half a tablet only. Chronic GERD: Continue famotidine Patient will return in 4 months for follow-up appointment [facility] Medical History Family history of thyroid disease in mother Vitamin D deficiency Chronic GERD Right upper quadrant abdominal pain Epigastric pain Surgical History Hx of colonoscopy No pertinent past surgical history Family History Mother Hypothyroidism Social History Housing: House Patient Tobacco Use Status: Never used Tobacco e-Cigarette/Vaping Use: Never Used Second Hand Smoke Exposure: No service: No Current occupational status: employed and student Current occupational exposures/hazards: No Questionnaire Thrive Questionnaire Date Thrive assessed: 01/13/23 JUSTA-7 AMB Questionnaire JUSTA-7 Date JUSTA - 7 assessed: 01/13/23 Source: Developed by Drs. Didier Brooks, Calli Ochoa, Rodrigo Crespo and colleagues, with an educational gopal from [employer]. Review of Systems Const Denies chills and Denies fever(s) ENT Denies epistaxis and Denies nasal discharge Card Denies chest pain Resp Denies chest congestion, Denies cough and Denies hemoptysis GI Denies diarrhea and Denies nausea Skin/Breast Denies rash Neuro Reports no additional complaints Psych Reports no additional complaints Endo Reports no additional complaints Physical exam (Primary Care) Vital Signs: Last Vital Signs Pulse 115 H 02/03/23 10:27 BP 110/70 02/03/23 10:27 Pulse Ox 98 02/03/23 10:27 BMI result Body Mass Index 22.2 Tobacco/Smoking Status: Tobacco use Status Tobacco use date assessed 02/03/23 02/03/23 10:28 Patient Tobacco Use Status Never used Tobacco 02/03/23 10:28 e-Cigarette/Vaping Use Never Used 02/03/23 10:28 Thrive Assessment: Date of Thrive Assessment Date Thrive assessed 01/13/23 02/03/23 10:28 Const General: cooperative, comfortable and no acute distress Orientation/consciousness: patient oriented x3 HENMT Head: Yes normocephalic Eyes General: appearance normal, both eyes and all related structures Neck Neck: Yes supple Resp Effort & Inspection: normal respiratory effort, no cough and no stridor Cardio Rhythm: regular rhythm Heart sounds: S1 normal heart sound present and S2 normal heart sound present Skin General skin exam: turgor normal Neuro General: patient oriented x3, tone normal and moves all extremities Extrem Right lower extremity: no edema Left lower extremity: no edema Assessment and Plan Assessment & Plan (1) Chronic GERD: Code(s): K21.9 - Gastro-esophageal reflux disease without esophagitis (2) Vitamin D deficiency: Code(s): E55.9 - Vitamin D deficiency, unspecified (3) Chronic idiopathic constipation: Code(s): K59.04 - Chronic idiopathic constipation (4) Anxiety, generalized: Code(s): F41.1 - Generalized anxiety disorder (5) Tiredness: Code(s): R53.83 - Other fatigue Plan Patient is 22-year-old female came in today for follow-up appointment Labs done recently reviewed with the patient her hemoglobin is within normal range TSH normal range Kidney function liver function intact Vitamin-D level is slightly low, for that I have recommended that she start taking supplement Chronic constipation: Patient has seen gastroenterology and was given script for Linzess which she has not picked up We talked about the importance of bowel movement It is highly important that patient regulate her bowels She is also not drinking enough water I would recommend to start with 1 glass in the morning on empty stomach and 6 classes during the day Exercise is also very important if she spent energy she will generate more energy in her body patient does not do any exercise Anxiety: I gave her script for Escitalopram 5 mg last time patient says that she only took it for 5 days but felt that her brain was foggy and started feeling dizzy so she stopped I have sent buspirone this time she may take that as needed half a tablet only. Chronic GERD: Continue famotidine Patient will return in 4 months for follow-up appointment Medications: New buspirone 2.5 mg (1/2 x 5 mg) PO .q am PRN 30 tabs 0RF anxiety 30 days Discontinued escitalopram oxalate (Lexapro) Discontinued Reason: Doctor's Order 5 mg PO DAILY 90 tabs 0RF Coding Level of Care Code Est Pt Level 3 (05998) Diagnoses Chronic GERD K21.9 Vitamin D deficiency E55.9 Chronic idiopathic constipation K59.04 Anxiety, generalized F41.1 Tiredness R53.83
== END 2023-02-03 10:57 | disposition home or self-care (01) ==
PROVIDERS: PCP Internal Medicine; Visit Provider Internal Medicine
DX: K21.9 Gastro-esophageal reflux disease without esophagitis (principal); E55.9 Vitamin D deficiency, unspecified; K59.04 Chronic idiopathic constipation; F41.1 Generalized anxiety disorder; R53.83 Other fatigue
CPT/HCPCS: 99213

== ENCOUNTER 2023-02-26 13:40 | Outpatient (AMB) | payer OTHER, SELFPAY ==
--- NOTE | 2023-02-26 13:50 | MHC.OFFVIS ---
Intake Vital Signs 02/26/23 14:04 Height 5 ft 3 in Weight 119 lb BMI 21.1 BP 122/69 Blood Pressure Location Lt brachial Position Sitting Pulse 80 Intake Visit Reasons: abdominal bloating Intake Note: Patient follow up for abdominal bloating. Patient cc: abdominal pain/discomfort with bloating after BM, denies any other GI issues. Shiftman Required: No Accompanied by: Father Allergies Ecitalopram Adverse Reaction (Mild, Uncoded 02/03/23 10:51) Dizziness Medication List - Last Reconciled 02/26/23 by Lavinia Yanez MD buspirone 2.5 mg (1/2 x 5 mg) PO .q am PRN 30 days cholecalciferol (vitamin D3) 250 mcg PO 2XW 90 days famotidine 20 mg PO ONCE 30 days linaclotide (Linzess) 290 mcg PO QAM 30 days polyethylene glycol 3350 (Miralax) 17 grams PO DAILY 1 day simethicone (Gas Relief 80 (simethicone)) 80 mg PO TID-QID PRN 30 days HPI abdominal bloating HPI Details GI clinic visit for this 22 year old Korean-Nor[place] female here for FU of chronic constipation. Pt has been followed by Connie Lynn since 12/2020 LABS IN [facility] : Reviewed - normal CBC, TSH, Vitamin B12 and low Vitamin D IMAGING STUDIES:? 09/27/21 FARIHA SHOWED: There is stool throughout the colon. There are no dilated loops of bowel to suggest obstruction. There is no evidence of free air. No calcifications. Normal bony structures. 05/2021 KUB showed: There is stool throughout the colon. There are no dilated loops of bowel or air-fluid levels to suggest obstruction. There is no evidence of free air. There are no calcifications. Bony structures are normal. 02/2021 UGISBFT showed: Patulous gastroesophageal junction with mild transient reflux. Otherwise unremarkable air-contrast upper GI examination and small bowel follow-through.? ENDOSCOPIC STUDIES:? 10/21/21 COLONOSCOPY SHOWED: One small polyp removed Biopsies were obtained from the distal rectum to check for Hirschsprung's disease Small hemorrhoids on retroflexed exam. Plan:? Repeat Colonoscopy interval based on path results - in 5 years if polyps are adenomatous and 10 years if polyps are hyperplastic. TODAY'S VISIT: Pt is accompanied by her Dad. Patient cc: abdominal pain/discomfort with bloating after BM, denies any other GI issues. Dad has been making cookies which has been helping with constipation Continues to have bloating with abdominal discomfort. Has a BM some times daily or every other day to every 5 days Taking Linzess every day. Notes persistent abdominal bloating even if she empties her bowel. Having a bowel movement every 3 days with hard stools. Takes Linzess 3-4 times a week (forgets to take it on some days) Colonoscopy results reviewed. Constipation is better. Has a BM daily to every other day. Continues to have some bloating though less than before. Notes intermittent heartburn - tried Omeprazole in the past and it was'nt helpful. Has not tried Pepcid or famotidine. Feels a little better since she started taking Linaclotide. Her Mom tried to use an enema and pt refused. Has not tried a suppository. Was having a BM every 3 days (not emptying out completeley) when she started taking the Linzess Bloating had improved. Constipation is worse when she is at school and associates worsening constipation with increased stress and anxiety. PAST VISIT: Constipation for the past 6 months. Hx of regurgitation after feeding as a baby. Improved after 6 months. Did not gain weight. She was having a small BM every 3 days.5 days ago with incomplete evacuaton. Notes difficulty expelling the stool. Has a BM every 2-3 weeks despite taking the Senna. Took enemas 2-3 times (worked 1st 2 times and did not work the 3rd time). Taking Senna intermittently. Has intermittent heartburn.Notes vomiting when she has Migraine BOONE Has tried lactulose (no response), senna and Miralax with partial response. Enemas worked best. Patient denies symptoms of dysphagia, nausea, change in appetite or weight.? Denies recent change in bowel habits, diarrhea, or rectal bleeding. Notes black stools when she is constipated for a long time. Patient denies major cardiac or pulmonary problems, loud snoring or sleep apnea Denies having any surgeries in the past. Denies being on chronic anticoagulation. A brother has chronic constipation. Patient denies known family history of colon polyps, colon cancer or other GI malignancies. A paternal aunt diagnosed with intestinal cancer at 75 yrs. PAST GI HISTORY BY REVIEW OF MEDICAL RECORDS: Last seen by Connie Lynn NP in Apr, 2021: She is here today with her father. She did not get the senna, she was taking her brother's Miralax - but it is not helping her enough. While she tries to move her bowels several times a day. only tiny amts come out. She is still having bloating and nausea.? Her lack of series bowel movement is why she did not return the H pylori stool earlier but they did give it to the lab today. I think the senna was not covered by insurance. I write it down for her father, and explain the tests and my reasoning for the treatment plan. This takes some education, as they just want to know what is wrong with her colon. I explain that this is hereditary, the colon may be longer: but there is no severe pathology as evidenced by the small bowel follow through study. They ask about the GERD and I explain this. Again, PPI therapy made her nauseated. We could consider H2 going forward, but getting the bowels moving likely will improve this given the low level of reflux. If we get her bowels moving and her nausea is not improved, I explain we may need to do an EGD. Her father says they have sought help from many providers, so there is a level of frustration in the last of progress in treating her. This is very life limiting for her, and I am very sympathetic to this and aware of the impact on her life and?[facility] Medical History Family history of thyroid disease in mother Vitamin D deficiency Chronic GERD Right upper quadrant abdominal pain Epigastric pain Surgical History Hx of colonoscopy No pertinent past surgical history Family History Mother Hypothyroidism Social History Housing: House Patient Tobacco Use Status: Never used Tobacco e-Cigarette/Vaping Use: Never Used Second Hand Smoke Exposure: No service: No Current occupational status: employed and student Current occupational exposures/hazards: No Review of Systems Const All systems reviewed & are unremarkable except as noted in HPI and below Physical Exam Vital Signs: Last Vital Signs Pulse 80 02/26/23 14:04 BP 122/69 02/26/23 14:04 BMI result Body Mass Index 21.1 Const General: healthy appearing and no acute distress Nutritional Appearance: average body habitus Orientation/consciousness: patient oriented x3 Limitations: no limitations HEENT Head: Yes normal to inspection Ears: hearing grossly normal bilaterally Mouth: Normal oral and palatal mucosa present Eyes Sclerae: sclerae normal Pupils: Equal, round and reactive pupils present Neck Neck: Yes normal visual inspection Chest Chest palpation & inspection: normal inspection of the chest Resp Effort & Inspection: normal respiratory effort Auscultation: clear to auscultation bilaterally Cardio Palpation: normal PMI Rate: regular rate Rhythm: regular rhythm Heart sounds: S1 normal heart sound present, S2 normal heart sound present and no murmurs GI Palpation (GI): Soft to palpation, nontender and No hepatosplenomegaly present Auscultation: normal bowel sounds Rectal Exam - Female: deferred Skin General skin exam: no rashes or lesions noted Neuro General: patient oriented x3, gait normal and moves all extremities Cranial nerves: Yes Equal, round and reactive pupils present Psych Appearance: grossly normal Mental Status: mental status grossly normal Assessment & Plan Assessment & Plan (1) Chronic GERD: Code(s): K21.9 - Gastro-esophageal reflux disease without esophagitis (2) Vitamin D deficiency: Code(s): E55.9 - Vitamin D deficiency, unspecified (3) Chronic idiopathic constipation: Code(s): K59.04 - Chronic idiopathic constipation (4) Abdominal bloating: Code(s): R14.0 - Abdominal distension (gaseous) (5) Dysphagia: Code(s): R13.10 - Dysphagia, unspecified Plan 22 YF followed in GI for nausea, GERD, abdominal bloating and Constipation for the past 6 months. Hx of regurgitation after feeding as a baby which improved after 6 months. Notes difficulty expelling the stool. Has intermittent heartburn.? Notes vomiting when she has Migraine BOONE Has tried lactulose (no response), senna and Miralax with partial response. Enemas worked best. Chronic constipation likely due to colonic inertia or dyssynergic defecation.? Sitz marker study was ordered and KUB was performed. She was advised to increase Linzess to 290 mcg daily and use suppositories prn.? Had a BM every 2-3 weeks despite taking the Senna - improved to daily/every other day after taking Linzess. Patient advised to switch to lactated milk for 2-3 weeks to see if bloating resolves.? If she continued to have symptoms, she was advised to follow a FODMAP diet - handout on FODMAP diet was provided to the patient. 10/23/22 Pt has graduated and is looking for a job. Advised to take Linzess daily and schedule an anorectal [place] at [facility] [place] to rule out dyssynergic defecation/outlet delay. 02/26/23 Continues to have bloating with abdominal discomfort. Has a BM some times daily or every other day to every 5 days despite taking Linzess 290 mcg daily Pt was advised to switch to Plecanatide 3 mg PO daily She was referred to [facility] for anorectal manometry FU in 3 months Orders: Referrals Gastroenterology Referral K59.04 - Chronic idiopathic constipation Medications: New bisacodyl (Dulcolax (bisacodyl)) Take 2 tablets at 12 pm 10 mg (2 x 5 mg) PO ONCE 1 day 2 tabs 0RF K59.04 - Chronic idiopathic constipation polyethylene glycol 3350 (Miralax) Mix Miralax with 64 oz(8 cups) of Crystal light. Take 2 tablets of Dulcolax qt 12 pm. Wait to have your 1st bowel movement, then begin drinking Miralax. Drink a glass of Miralax every 10-15 minutes until you are finished. You will drink at least another 4 cups of clear liquid of your choice over the next 2 hours. Please drink as many clear liquids as possible 17 grams PO DAILY 1 day 238 grams 0RF K59.04 - Chronic idiopathic constipation plecanatide (Trulance) Partial response to Linzess 290 mcg daily 3 mg PO DAILY 30 days 30 tabs 4RF K59.04 - Chronic idiopathic constipation Coding Level of Care Code Est Pt Level 4 (80362) Diagnoses Chronic GERD K21.9 Vitamin D deficiency E55.9 Chronic idiopathic constipation K59.04 Abdominal bloating R14.0 Dysphagia R13.10 Time Spent (min) 20
[2023-02-26 14:04] VITALS: BP 122/69; PULSE 80; BMI 21.1
== END 2023-02-26 15:46 | disposition home or self-care (01) ==
PROVIDERS: PCP Internal Medicine; Visit Provider Internal Medicine Gastroenterology
DX: K21.9 Gastro-esophageal reflux disease without esophagitis (principal); E55.9 Vitamin D deficiency, unspecified; K59.04 Chronic idiopathic constipation; R14.0 Abdominal distension (gaseous); R13.10 Dysphagia, unspecified
CPT/HCPCS: 99214

== ENCOUNTER → 2023-02-26 13:40 | Outpatient (BNVA) | payer OTHER, SELFPAY | PROVIDERS: PCP Internal Medicine; Visit Provider Internal Medicine Gastroenterology | DX: K21.9 Gastro-esophageal reflux disease without esophagitis (principal); K59.04 Chronic idiopathic constipation; E55.9 Vitamin D deficiency, unspecified; R14.0 Abdominal distension (gaseous); R13.10 Dysphagia, unspecified | CPT/HCPCS: 99212 ==

== ENCOUNTER 2024-01-27 11:22 | Outpatient (AMB) | payer OTHER, SELFPAY ==
[2024-01-27 11:27] VITALS: BP 110/72; PULSE 118; O2SAT 97; BMI 22.5
--- NOTE | 2024-01-27 11:27 | MHC.PC.OV ---
Vital Signs 01/27/24 11:27 Height 5 ft 3 in Weight 127 lb BMI 22.5 BP 110/72 Blood Pressure Location Rt brachial Position Sitting Pulse 118 H Pulse Source Pulse Oximeter Pulse Oximetry (%) 97 Oxygen Delivery Method Room Air Intake Visit Reasons: Physical Exam NEEDS PHQ9 + THRIVE Allergies Ecitalopram Adverse Reaction (Mild, Uncoded 02/03/23 10:51) Dizziness Medication List - Last Reconciled 01/27/24 by Momo Wright MD bisacodyl (Dulcolax (bisacodyl)) 10 mg (2 x 5 mg) PO ONCE 1 day cholecalciferol (vitamin D3) 250 mcg PO 2XW 90 days famotidine 20 mg PO ONCE 30 days plecanatide (Trulance) 3 mg PO DAILY 30 days polyethylene glycol 3350 (Miralax) 17 grams PO DAILY 1 day polyethylene glycol 3350 (Miralax) 17 grams PO DAILY 1 day simethicone (Gas Relief 80 (simethicone)) 80 mg PO TID-QID PRN 30 days Tobacco use date assessed: 01/27/24 Dental Screening Dental Screen Date: 01/27/24 Did you have a dental visit in the last 12 months?: Yes Did you have a dental problem in the last 6 months where you did not have access to dental care?: No Was dental information given to patient?: Patient has dentist HPI Physical Exam NEEDS PHQ9 + THRIVE HPI Details Patient is 23-year-old female came in today for physical examination Does not want to see OBGYN Patient has been having excessive dandruff, she has tried head and shoulder shampoo which has not helped I have sent nasal all shampoo she may use that 2 times a week Also has been having sinus pressure and postnasal drip with nasal discharge for the past week Patient says that it is getting worse associated with headache off and on Azithromycin sent, I would recommend to use saline nasal spray [id number] to keep the sinuses clear Flu vaccine was given today [facility] Medical History Family history of thyroid disease in mother Vitamin D deficiency Chronic GERD Right upper quadrant abdominal pain Epigastric pain Surgical History Hx of colonoscopy No pertinent past surgical history Family History Mother Hypothyroidism Social History Housing: House Patient Tobacco Use Status: Never used Tobacco e-Cigarette/Vaping Use: Never Used Second Hand Smoke Exposure: No service: No Current occupational status: employed and student Current occupational exposures/hazards: No Cognitive needs: No Hearing needs: No Vision needs: No Questionnaire PHQ-9 Over the last 2 weeks, how often have you been bothered by any of the following problems? 1. Little interest or pleasure in doing things: not at all 2. Feeling down, depressed, or hopeless: not at all 3. Trouble falling or staying asleep, or sleeping too much: not at all 4. Feeling tired or having little energy: not at all 5. Poor appetite or overeating: not at all 6. Feeling bad about yourself - or that you are a failure or have let yourself or your family down: not at all 7. Trouble concentrating on things, such as reading the newspaper or watching television: not at all 8. Moving or speaking so slowly that other people could have noticed. Or the opposite - being so fidgety or restless that you have been moving around a lot more than usual: not at all 9. Thoughts that you would be better off or of hurting yourself in some way: not at all Total score: 0 Depression Screening Interpretation: Negative Depression Screening Done: Yes 60829 - PHQ-9 Billing: Yes Source: Developed by Drs. Didier Brooks, Calli Ochoa, Rodrigo Crespo and colleagues, with an educational gopal from [employer]. Thrive Questionnaire Date Thrive assessed: 01/27/24 I am a: Patient What is your living situation today?: I have a steady place to live Within the past 12 months, did the food you bought not last and you didn't have the money to get more?: Never true Within the past 12 months, did you worry whether your food would run out before you got money to buy more?: Never true Do you have trouble paying for medicines?: I choose not to answer this question Do you have trouble getting transportation to medical appointments?: I choose not to answer this question Do you have trouble paying your heating and electricity bill?: I choose not to answer this question Do you have trouble taking care of your child, family member or friend?: No Do you have trouble with day-to-day activities such as bathing, preparing meals, shopping, managing finances, etc.?: No Are you currently unemployed and looking for a job?: Yes Are you interested in more education?: I choose not to answer this question Please select the resources that you would like help with: None Currently or been in a relationship where the following occur: No concerns reported THRIVE Score: 0 AUDIT C Alcohol Use Questionnaire (AUDIT-C) 1. How often do you have a drink containing alcohol?: Never 3. How often do you have six or more drinks on one occasion?: Never Total Score: 0 Score Reviewed/Action Taken: Yes JUSTA-7 AMB Questionnaire JUSTA-7 Date JUSTA - 7 assessed: 01/27/24 Feeling nervous, anxious, or on edge: 0 = Not at all Not being able to stop or control worryin = Not at all Worrying too much about different things: 0 = Not at all Trouble relaxin = Not at all Being so restless that it is hard to sit still: 0 = Not at all Becoming easily annoyed or irritable: 0 = Not at all Feeling afraid as if something awful might happen: 0 = Not at all Total JUSTA-7 score (0-4 normal; 5-9 mild; 10-14 moderate; 15-21 severe): 0 Source: Developed by Drs. Didier Brooks, Calli Ochoa, Rodrigo Crespo and colleagues, with an educational gopal from [employer]. JUSTA-7 Assessment Billing JUSTA-7 Assessment Tool: JUSTA-7 Assessment 09487 Review of Systems Const Denies chills, Denies fever(s) and Denies headache(s) Eyes Denies blurry vision ENT Denies headache(s), Denies nasal discharge, Denies nasal obstruction, Denies odynophagia and Denies sinus pain Card Denies chest pain at rest and Denies chest pain with activity Resp Denies cough and Denies hemoptysis GI Denies diarrhea, Denies odynophagia, Denies vomiting and Denies hematemesis Reports as per HPI Musc Denies abnormal gait Skin/Breast Reports as per HPI Neuro Denies Neuro-related abnormal movements, Denies Abnormal speech present, Denies abnormal gait, Denies headache(s) and Denies Sensory deficit (Neuro) Psych Denies mood swings and Denies paranoia Endo Reports as per HPI Sonu/Lymph Reports as per HPI Aller/Immun Reports as per HPI Physical exam (Primary Care) Vital Signs: Last Vital Signs Pulse 118 H 01/27/24 11:27 BP 110/72 01/27/24 11:27 Pulse Ox 97 01/27/24 11:27 Oxygen Delivery Method Room Air 01/27/24 11:27 BMI result Body Mass Index 22.5 Tobacco/Smoking Status: Tobacco use Status Tobacco use date assessed 01/27/24 01/27/24 11:29 Patient Tobacco Use Status Never used Tobacco 01/27/24 11:29 e-Cigarette/Vaping Use Never Used 01/27/24 11:29 PHQ-9: PHQ-9 Score PHQ-9: Total score 0 01/27/24 12:05 Depression Screening Interpretation: Negative Thrive Assessment: Date of Thrive Assessment Date Thrive assessed 01/27/24 01/27/24 11:35 Currently or been in a relationship where the following occur: No concerns reported Const General: cooperative, comfortable and no acute distress Orientation/consciousness: patient oriented x3 HENMT Head: Yes normocephalic and Yes atraumatic Eyes General: appearance normal, both eyes and all related structures Pupils: Equal, round and reactive pupils present EOM: EOMs intact bilaterally Neck Neck: Yes supple and No lymphadenopathy Thyroid: Thyroid normal Lymphatic: no lymphadenopathy noted Resp Effort & Inspection: normal respiratory effort and able to speak in complete sentences Auscultation: clear to auscultation bilaterally Cardio Heart sounds: S1 normal heart sound present and S2 normal heart sound present GI Palpation (GI): Soft to palpation and nontender Auscultation: normal bowel sounds General: Yes no CVA tenderness Back/Spine/Pelvis Back: no CVA tenderness Skin General skin exam: elasticity normal and turgor normal Neuro General: patient oriented x3 and gait normal Cranial nerves: Yes Equal, round and reactive pupils present Speech: No Abnormal speech present Sensory Exam: No Sensory deficit (Neuro) Coordination: tandem gait normal and Romberg test negative Extrem General: Yes normal exam except as noted and No edema Office Procedures Flu Questionnaire Does the patient have a severe egg allergy?: No Does the patient have severe life threatening allergies?: No Does the patient have a fever or illness today?: No Has the patient ever had Guillain-Macon Syndrome?: No Has the patient ever had any past reaction to a flu shot?: No Immunizations Fluarix Triv [id number] (PF) 45 mcg (15 mcg x 3)/0.5 mL IM syringe Performing Provider: Momo Wright MD Performing Location: [facility] [place] [facility] Administered by: Harley Dumont CMA on 01/27/24 12:05 Dose Route Admin Location Dispensed Lot Number Expiration Date NDC Doorperson 0.5 mL IM Right Deltoid 0.5 mL [id number] 09/19/24 [id number] [employer] VIS Given Date VIS Provided VIS Publication Date 01/27/24 Single Vaccine 20 Eligibility Eligibility Date Funding Source Not [facility] Eligible 01/27/24 Private Coding Level of Care Code Est Pt Level 3 (87635) Est Pt Prev Care 18-39y(62405) Diagnoses Encounter for general adult medical examination with abnormal findings Z00.01 Acute non-recurrent maxillary sinusitis J01.00 Chronicity: acute Recurrence: non-recurrent Sinusitis location: maxillary Seborrheic dermatitis L21.9 Chronic idiopathic constipation K59.04 Anxiety, generalized F41.1 Additional Codes JUSTA-7 Assessment Billing - JUSTA-7 Assessment Tool: JUSTA-7 Assessment 04796 ([id number]) PHQ-9 - 62130 - PHQ-9 Billing: Yes ([id number]) Assessment & Plan Assessment & Plan (1) Encounter for general adult medical examination with abnormal findings: Code(s): Z00.01 - Encounter for general adult medical examination with abnormal findings Category: Medical (2) Sinus infection: Code(s): J32.9 - Chronic sinusitis, unspecified Category: Medical Qualifiers: Chronicity: acute Recurrence: non-recurrent Sinusitis location: maxillary Qualified Code(s): J01.00 - Acute maxillary sinusitis, unspecified (3) Seborrheic dermatitis: Code(s): L21.9 - Seborrheic dermatitis, unspecified Category: Medical (4) Chronic idiopathic constipation: Code(s): K59.04 - Chronic idiopathic constipation Category: Medical (5) Anxiety, generalized: Code(s): F41.1 - Generalized anxiety disorder Category: Medical Plan Patient is 23-year-old female came in today for physical examination Does not want to see OBGYN Patient has been having excessive dandruff, she has tried head and shoulder shampoo which has not helped I have sent nasal all shampoo she may use that 2 times a week Also has been having sinus pressure and postnasal drip with nasal discharge for the past week Patient says that it is getting worse associated with headache off and on Azithromycin sent, I would recommend to use saline nasal spray [id number] to keep the sinuses clear Flu vaccine was given today Orders: Orders Complete Blood Count Auto Diff Today F41.1 - Generalized anxiety disorder, J32.9 - Chronic sinusitis, unspecified, K59.04 - Chronic idiopathic constipation, Z00.01 - Encounter for general adult medical examination with abnormal findings Comprehensive [place]. Panel Fast Today F41.1 - Generalized anxiety disorder, J32.9 - Chronic sinusitis, unspecified, K59.04 - Chronic idiopathic constipation, Z00.01 - Encounter for general adult medical examination with abnormal findings Vitamin D 25-OH (D2 and D3) Today F41.1 - Generalized anxiety disorder, J32.9 - Chronic sinusitis, unspecified, K59.04 - Chronic idiopathic constipation, Z00.01 - Encounter for general adult medical examination with abnormal findings TSH reflex Free T4 Today F41.1 - Generalized anxiety disorder, J32.9 - Chronic sinusitis, unspecified, K59.04 - Chronic idiopathic constipation, Z00.01 - Encounter for general adult medical examination with abnormal findings Lipid Panel Today F41.1 - Generalized anxiety disorder, J32.9 - Chronic sinusitis, unspecified, K59.04 - Chronic idiopathic constipation, Z00.01 - Encounter for general adult medical examination with abnormal findings Influenza [id number] Immunization Today Z23 - Encounter for immunization Medications: New azithromycin Take 2 tablets today then 1 daily 250 mg PO ONCE 6 tabs 0RF 5 days J06.9 - Acute upper respiratory infection, unspecified
== END 2024-01-27 12:52 | disposition home or self-care (01) ==
LOC: HO.HMCC 11:22
PROVIDERS: PCP Internal Medicine; Visit Provider Internal Medicine
DX: Z00.00 Encounter for general adult medical examination without abnormal findings (principal); J01.00 Acute maxillary sinusitis, unspecified; L21.9 Seborrheic dermatitis, unspecified; K59.04 Chronic idiopathic constipation; F41.1 Generalized anxiety disorder

== ENCOUNTER → 2024-01-27 11:22 | Outpatient (BNVA) | payer OTHER, SELFPAY | PROVIDERS: PCP Internal Medicine; Visit Provider Internal Medicine | DX: Z00.01 Encounter for general adult medical examination with abnormal findings (principal); Z23 Encounter for immunization; J01.00 Acute maxillary sinusitis, unspecified; L21.9 Seborrheic dermatitis, unspecified; K59.04 Chronic idiopathic constipation; F41.1 Generalized anxiety disorder | CPT/HCPCS: 90471; 90656; 96127; 99212; 99395 ==

== ENCOUNTER 2024-01-29 09:50 | Outpatient (REF) | payer OTHER, SELFPAY ==
[2024-01-29 13:14] LABS: MANUAL DIFF FLAG NO
[2024-01-29 13:19] LABS: Basophils Percent Auto 0.7 % (0-2); Eosinophils Absolute Auto 0.4 X10*3/uL (0.0-0.4); Eosinophils Percent Auto 7.2 % (0-4); Hematocrit 40.4 % (37.0-47.0); Hemoglobin 13.3 g/dl (12.0-16.0); Imm Gran Abs Auto 0.02 X10*3/uL (0.00-0.03); Imm Gran Pct Auto 0.4 % (0.0-0.4); Lymphocytes Absolute Auto 1.7 X10*3/uL (1.2-4.9); Lymphocytes Percent Auto 31.1 % (20-40); Mean Corpuscular HGB Conc 32.9 g/dl (31.0-35.0); Mean Corpuscular Hemoglobin 29.5 pg (27.0-33.0); Mean Corpuscular Volume 89.6 fL (80.0-98.0); Mean Platelet Volume 11.9 fL (9.4-12.3); Monocytes Absolute Auto 0.5 X10*3/uL (0.1-1.2); Neutrophils Absolute Auto 2.8 x10*3/uL (2.0-8.3); Neutrophils Percent Auto 51.6 % (45-73); Platelet Count 228 X10*3/uL (160-400); Red Blood Count 4.51 X10*6/uL (4.20-5.50); Red Cell Distribution Width 13.1 % (11.0-16.0); White Blood Count 5.4 X10*3/uL (4.8-10.8)
[2024-01-29 13:44] LABS: Alanine Aminotransferase 14 U/L (0-31); Albumin Level 4.2 g/dL (3.5-5.0); Alkaline Phosphatase 56 U/L (39-117); Anion Gap 12 (12-20); Aspartate Amino Transferase 22 U/L (5-31); Bilirubin Total 0.3 mg/dL (0.0-1.0); Blood Urea Nitrogen 11 mg/dL (9-16); Calcium 8.8 mg/dL (8.4-10.2); Carbon Dioxide 26 mmol/L (22-29); Chloride 106 mmol/L (96-108); Cholesterol 157 mg/dL (<200); Estimated Glomerular Filt Rate > 60; Glucose Fasting 95 mg/dL (60-99); HDL Cholesterol 47 mg/dL (>40); LDL Cholesterol Calculated 94 mg/dL (<100); Potassium 4.4 mmol/L (3.3-5.1); Sodium 140 mmol/L (135-145); Total Protein 7.2 g/dL (6.5-8.0); Triglycerides 83 mg/dL (<150)
[2024-01-29 14:38] LABS: TSH reflex Free T4 2.15 uIU/mL (0.32-4.0)
[2024-02-05 14:02] LABS: Vitamin D 25-OH, D2 <4 ng/mL; Vitamin D 25-OH, D3 20 ng/mL; Vitamin D 25-OH, Total 20 ng/mL (30-100)
== END 2024-01-29 09:51 | disposition home or self-care (01) ==
LOC: HO.HMGCLDS 09:50
PROVIDERS: PCP Internal Medicine; Visit Provider Internal Medicine
DX: Z00.01 Encounter for general adult medical examination with abnormal findings (principal); K59.04 Chronic idiopathic constipation; F41.1 Generalized anxiety disorder; J32.9 Chronic sinusitis, unspecified
CPT/HCPCS: 36415; 80053; 80061; 82306; 84443; 85025

== ENCOUNTER 2025-01-12 07:50 | Outpatient (AMB) | payer OTHER, SELFPAY ==
--- OUTSIDE RECORDS SUMMARY | 2025-01-12 07:52 | XMS_ITS | Clinical Summary ---
Author Organization [facility] Address [address] [place] [address] Care Team Providers Care Senior Cost Accountant Name Role Phone Dai Betts MD Primary Care Provider [phone] Source Comments PLEASE NOTE, if this patient is a minor, it may be UNLAWFUL to discuss sensitive information that is contained in these records (such as FAMILY PLANNING, MENTAL HEALTH or SUBSTANCE ABUSE) with the minor patient's parent or other person without the patient's specific authorization.[facility] Allergies No known active allergies Medications Pediatric Nutrition, Iron, LF (PEDIASURE) 0.03-1 gram-kcal/mL liqdIndications:We ight loss Take 1 Can by mouth once daily. 30 Bottle PRN 11/05/2015 Active ergocalciferol, vitamin D2, (VITAMIN D2) 50,000 unit capsuleIndications :Vitamin D insufficiency Take 1 Cap by mouth once a week. 12 Cap 1 11/05/2015 Active pedi mv no.114-iron fumarate (CHILD'S CHEWABLE VITAMINS/IRON) 15 mg chewIndications:We ight loss Take 1 Tab by mouth once daily. 90 Tab 3 11/05/2015 Active Active Problems Problem Noted Date Diagnosed Date Vitamin D insufficiency 09/02/2013 Seborrheic dermatitis of scalp 09/02/2013 Immune to varicella 10/29/2007 Refugee health examination 10/29/2007 Resolved Problems Problem Noted Date Diagnosed Date Resolved Date Heart murmur 10/25/2014 11/05/2015 Immunizations Immunization Administration Dates Next Due HEP B, PED/ADOL ([id number]/RECOMBIVAX-PEDS) 11/05/2015,07/12/2008 HPV 9 (Gardasil) 11/05/2015 Hep A, Ped/adol, 2 Dose 07/24/2010,07/12/2008 INFLUENZA, SEASONAL, INJECTABLE 02/11/2012,01/10 INFLUENZA, SEASONAL, INJECTA BLE, PRESERVATIVE FREE 02/24/2013 IPV (IPOL) 07/24/2010, 9,01/11/2008,11/23 MENINGOCOCCAL VACCINE,CONJUG ATE (NON-INTERFACE) 10/01/2011 MMR (MMR II/Priorix) 01/11/2008,11/24/2007 PPD 09/02/2013,01/11/2008 TDAP 06/14/2008,01/11/2008,11/24/2007 Td (adult),2 Lf tetanus toxo id (TDVAX), preservative free 07/24/2010 Social History Tobacco Use Types Packs/Day Years Used Date Smoking Tobacco: Never Alcohol Use Standard Drinks/Week Comments No 0 (1 standard drink = 0.6 oz pur e alcohol) Social Connections Answer Date Recorded Social Connections and Isolation 0 11/09/2018 Financial Resource Strain Answer Date R ecorded Financial Resource Strain 0 2018 Stress Answer Date Recorded Stress 0 11/09/2018 Physical Activity Answer Date Recorded Physical Activity 0 11/09/2018 Food Insecurity Answer Date Recorded Food 0 11/09/2018 Transportation Needs Answer Date Record ed Transportation 0 11/09/2018 Housing Stability Answer Date Recorded Housing 0 11/09/2018 Safety and Environment Answer Date Morales rded Safety 0 11/09/2018 Utilities Answer Date Recorded Utilities 0 11/09/2018 Employment Answer Date Recorded Employment 0 11/09/2018 Comments No Sex and Gender Information Value Date Recorded Sex Assigned at Not on file Legal Sex Female 11:36 AM PDT Gender Identity Not on file Sexual Orientation Not on file Last Filed Vital Signs Vital Sign Reading Time Taken Comments Blood Pressure 108/68 11/05/2015 11:27 AM EDT Pulse 108 11/05/2015 11:27 AM EDT Temperature 36.7 C (98.1 F) 11/05/2015 11:27 AM EDT Respiratory Rate 24 11/05/2015 11:27 AM EDT Oxygen Saturation 99% 10/25/2014 11:19 AM EDT Inhaled Oxygen Concentration - - Weight 46.3 kg (102 lb) 11/05/2015 11:27 AM EDT Height 161.3 cm (5' 3.5 ) 11/05/2015 11:27 AM ED T Body Mass Index 17.79 11/05/2015 11:27 AM EDT Plan of Treatment Not on file Insurance [facility] [employer] Member Subscriber Plan / Payer (Ef fective 2013-Present) Name:Joie Davenport Relation to Subscriber:Self Name:Joie Davenport Payer ID:[id number] Group ID:[id number] Type:Medicaid Address: [facility] [id number] [place] [id number] Care Teams Senior Cost Accountant Relationship Specialty Start Date End Date Dai Betts MD [id number] [place] [id number] PCP - General Pediatrics 02/24/13
--- NOTE | 2025-01-12 07:53 | A.OFFVIS_ITS ---
Vital Signs 01/12/25 07:54 Height 5 ft 3 in Weight 126 lb BMI 22.3 BP 106/66 Blood Pressure Location Lt brachial Position Sitting Pulse 89 Pulse Oximetry (%) 99 Oxygen Delivery Method Room Air Intake Visit Reasons: Abdominal bloating Intake Note: Patient follow up abdominal bloating,farhana was 02/26/2023. Patient cc: abdominal pain with bloating, nauseas, heartburn, constipation and needed refill for medication, and some dysphagia on and off. Men'S Locker Room Attendant Required: No Accompanied by: Father Allergies Ecitalopram Adverse Reaction (Mild, Uncoded 02/03/23 10:51) Dizziness Medication List - Last Reconciled 01/12/25 by Lavinia Yanez MD cholecalciferol (vitamin D3) 250 mcg PO 2XW 90 days famotidine 20 mg PO ONCE 30 days ketoconazole 2% 1 appl topical 2XW plecanatide (Trulance) 3 mg PO DAILY 30 days polyethylene glycol 3350 (Miralax) 17 grams PO DAILY 1 day simethicone (Gas Relief 80 (simethicone)) 80 mg PO TID-QID PRN 30 days HPI HPI Abdominal bloating: Details: GI clinic visit for this 24 year old Italian-Ira[place] female here for FU of chronic constipation. Pt has been followed by Connie Lynn since 12/2020 TODAY'S VISIT: Pt is accompanied by her Dad.constipation and abd bloating Notes pressure on her bladder when she is constipated. Ran out of medications and has not been taking them for > 1 year. Also notes heartburn - worse when she is constipated. Bloating improves when not constipated and sometimes can be bloated without being constipated. Intermittent dysphagia to solids - can feel the food going down when she swallows the food. Patient cc: abdominal pain/discomfort with bloating after BM, denies any other GI issues. Dad has been making cookies which has been helping with constipation Continues to have bloating with abdominal discomfort. Has a BM some times daily or every other day to every 5 days Taking Linzess every day. Notes persistent abdominal bloating even if she empties her bowel. Having a bowel movement every 3 days with hard stools. Takes Linzess 3-4 times a week (forgets to take it on some days) Colonoscopy results reviewed. Constipation is better. Has a BM daily to every other day. Continues to have some bloating though less than before. Notes intermittent heartburn - tried Omeprazole in the past and it was'nt helpful. Has not tried Pepcid or famotidine. Feels a little better since she started taking Linaclotide. Her Mom tried to use an enema and pt refused. Has not tried a suppository. Was having a BM every 3 days (not emptying out completeley) when she started taking the Linzess Bloating had improved. Constipation is worse when she is at school and associates worsening constipation with increased stress and anxiety. PAST VISIT: Constipation for the past 6 months. Hx of regurgitation after feeding as a baby. Improved after 6 months. Did not gain weight. She was having a small BM every 3 days.5 days ago with incomplete evacuaton. Notes difficulty expelling the stool. Has a BM every 2-3 weeks despite taking the Senna. Took enemas 2-3 times (worked 1st 2 times and did not work the 3rd time). Taking Senna intermittently. Has intermittent heartburn.Notes vomiting when she has Migraine BOONE Has tried lactulose (no response), senna and Miralax with partial response. Enemas worked best. Patient denies symptoms of dysphagia, nausea, change in appetite or weight.? Denies recent change in bowel habits, diarrhea, or rectal bleeding. Notes black stools when she is constipated for a long time. Patient denies major cardiac or pulmonary problems, loud snoring or sleep apnea Denies having any surgeries in the past. Denies being on chronic anticoagulation. A brother has chronic constipation. Patient denies known family history of colon polyps, colon cancer or other GI malignancies. A paternal aunt diagnosed with intestinal cancer at 75 yrs. LABS IN [facility] : Reviewed - normal CBC, TSH, Vitamin B12 and low Vitamin D IMAGING STUDIES:? 09/27/21 FARIHA SHOWED: There is stool throughout the colon. There are no dilated loops of bowel to suggest obstruction. There is no evidence of free air. No calcifications. Normal bony structures. 05/2021 KUB showed:There is stool throughout the colon. There are no dilated loops of bowel or air-fluid levels to suggest obstruction. There is no evidence of free air. There are no calcifications. Bony structures are normal. 02/2021 UGISBFT showed: Patulous gastroesophageal junction with mild transient reflux. Otherwise unremarkable air-contrast upper GI examination and small bowel follow- through.? ENDOSCOPIC STUDIES:? 10/21/21 COLONOSCOPY SHOWED: One small polyp removed Biopsies were obtained from the distal rectum to check for Hirschsprung's disease Small hemorrhoids on retroflexed exam. Plan:? Repeat Colonoscopy interval based on path results - in 5 years if polyps are adenomatous and 10 years if polyps are hyperplastic. PAST GI HISTORY BY REVIEW OF MEDICAL RECORDS: Last seen by Connie Lynn NP in Apr, 2021: She is here today with her father. She did not get the senna, she was taking her brother's Miralax - but it is not helping her enough. While she tries to move her bowels several times a day. only tiny amts come out. She is still having bloating and nausea.? Her lack of series bowel movement is why she did not ret urn the H pylori stool earlier but they did give it to the lab today. I think the senna was not covered by insurance. I write it down for her father, and explain the tests and my reasoning for the treatment plan. This takes some education, as they just want to know what is wrong with her colon. I explain that this is hereditary, the colon may be longer: but there is no severe pathology as evidenced by the small bowel follow through study. They ask about the GERD and I explain this. Again, PPI therapy made her nauseated. We could consider H2 going forward, but getting the bowels moving likely will improve this given the low level of reflux. If we get her bowels moving and her nausea is not improved, I explain we may need to do an EGD. Her father says they have sought help from many providers, so there is a level of frustration in the last of progress in treating her. This is very life limiting for her, and I am very sympathetic to this and aware of the impact on her life and?school [facility] Medical History Family history of thyroid disease in mother Vitamin D deficiency Chronic GERD Right upper quadrant abdominal pain Epigastric pain Surgical History Hx of colonoscopy No pertinent past surgical history Family History Mother Hypothyroidism Social History Housing: House Patient Tobacco Use Status: Never used Tobacco e-Cigarette/Vaping Use: Never Used Second Hand Smoke Exposure: No service: No Current occupational status: employed and student Current occupational exposures/hazards: No Cognitive needs: No Hearing needs: No Vision needs: No Review of Systems Const All systems reviewed & are unremarkable except as noted in HPI and below Physical Exam Vital Signs: Last Vital Signs Pulse 89 01/12/25 07:54 BP 106/66 01/12/25 07:54 Pulse Ox 99 01/12/25 07:54 Oxygen Delivery Method Room Air 01/12/25 07:54 BMI result Body Mass Index 22.3 Const General: healthy appearing and no acute distress Nutritional Appearance: average body habitus Orientation/consciousness: patient oriented x3 Limitations: no limitations HEENT Head: Yes normal to inspection Ears: hearing grossly normal bilaterally Mouth: Normal oral and palatal mucosa present Eyes Sclerae: sclerae normal Pupils: Equal, round and reactive pupils present Neck Neck: Yes normal visual inspection Chest Chest palpation & inspection: normal inspection of the chest Resp Effort & Inspection: normal respiratory effort Auscultation: clear to auscultation bilaterally Cardio Palpation: normal PMI Rate: regular rate Rhythm: regular rhythm Heart sounds: S1 normal heart sound present, S2 normal heart sound present and no murmurs GI Palpation (GI): Soft to palpation, nontender and No hepatosplenomegaly present Auscultation: normal bowel sounds Rectal Exam - Female: deferred Skin General skin exam: no rashes or lesions noted Neuro General: patient oriented x3, gait normal and moves all extremities Cranial nerves: Yes Equal, round and reactive pupils present Psych Appearance: grossly normal Mental Status: mental status grossly normal Assessment & Plan Assessment & Plan (1) Chronic GERD: Code(s): K21.9 - Gastro-esophageal reflux disease without esophagitis Category: Medical (2) Dysphagia: Code(s): R13.10 - Dysphagia, unspecified Category: Medical (3) Nausea: Code(s): R11.0 - Nausea Category: Medical (4) Chronic idiopathic constipation: Code(s): K59.04 - Chronic idiopathic constipation Category: Medical (5) Abdominal bloating: Code(s): R14.0 - Abdominal distension (gaseous) Category: Medical Plan 24 YF followed in GI for nausea, GERD, abdominal bloating and constipation for the past 2.5 years. Hx of regurgitation after feeding as a baby which improved after 6 months. Notes difficulty expelling the stool. Has intermittent heartburn.? Notes vomiting when she has Migraine BOONE Has tried lactulose (no response), senna and Miralax with partial response. Enemas worked best. Chronic constipation likely due to colonic inertia or dyssynergic defecation.? Sitz marker study was ordered and KUB was performed. She was advised to increase Linzess to 290 mcg daily and use suppositories prn.? Had a BM every 2-3 weeks despite taking the Senna - improved to daily/every other day after taking Linzess. Patient advised to switch to lactated milk for 2-3 weeks to see if bloating resolves.? If she continued to have symptoms, she was advised to follow a FODMAP diet - handout on FODMAP diet was provided to the patient. 10/23/22 Pt has graduated and is looking for a job. Advised to take Linzess daily and [place] [facility] [place] dyssynergic defecation/outlet delay. 02/26/23 Continues to have bloating with abdominal discomfort. Has a BM some times daily or every other day to every 5 days despite taking Linzess 290 mcg daily Pt was advised to switch to Plecanatide 3 mg PO daily She was referred to [facility] for anorectal manometry On 10/18/24 @ 15:33 Mandy Madrid Wrote To Lavinia Yanez Pt called, stated she refused to have the Anorectal manometry. 01/12/25 recurrent symptoms since she ran out of her medications - refills sent Willing to schedule anorectal manometry - referral sent to [facility]. Patient advised a low FODMAP diet and start probiotics daily. Use natural laxatives - honey in warm water, kiwi and dried apricots. FU in 3 months Orders: Referrals Colon & Rectal Referral K59.04 - Chronic idiopathic constipation Medications: New Lactobacillus rhamnosus GG (Culturelle) 1 cap PO DAILY 90 caps 1RF 90 days K59.04 - Chronic idiopathic constipation, R14.0 - Abdominal distension (gaseous) Changed From famotidine 20 mg PO ONCE 30 days 90 tabs 0RF K21.9 - Gastro-esophageal reflux disease without esophagitis, R13.10 - Dysphagia, unspecified To famotidine 20 mg PO BID 180 tabs 1RF 90 days K21.9 - Gastro-esophageal reflux disease without esophagitis, R13.10 - Dysphagia, unspecified From plecanatide (Trulance) Partial response to Linzess 290 mcg daily 3 mg PO DAILY 30 days 30 tabs 4RF K59.04 - Chronic idiopathic constipation To plecanatide (Trulance) Partial response to Linzess 290 mcg daily 3 mg PO DAILY 90 tabs 1RF 90 days K59.04 - Chronic idiopathic constipation Refilled cholecalciferol (vitamin D3) 250 mcg PO 2XW 26 caps 1RF 90 days E55.9 - Vitamin D deficiency, unspecified Coding Level of Care Code Est Pt Level 4 (57612) Diagnoses Chronic GERD K21.9 Dysphagia R13.10 Nausea R11.0 Chronic idiopathic constipation K59.04 Abdominal bloating R14.0 Time Spent (min) 25
[2025-01-12 07:54] VITALS: BP 106/66; PULSE 89; O2SAT 99; BMI 22.3
== END 2025-01-12 08:46 | disposition home or self-care (01) ==
LOC: HO.HGI 07:50
PROVIDERS: PCP Internal Medicine; Visit Provider Internal Medicine Gastroenterology
DX: K21.9 Gastro-esophageal reflux disease without esophagitis (principal); R13.10 Dysphagia, unspecified; R11.0 Nausea; K59.04 Chronic idiopathic constipation; R14.0 Abdominal distension (gaseous)
CPT/HCPCS: 99214

== ENCOUNTER → 2025-01-12 07:50 | Outpatient (BNVA) | payer OTHER, SELFPAY | PROVIDERS: PCP Internal Medicine; Visit Provider Internal Medicine Gastroenterology | DX: K21.9 Gastro-esophageal reflux disease without esophagitis (principal); K59.04 Chronic idiopathic constipation; R13.10 Dysphagia, unspecified; R11.0 Nausea; R14.0 Abdominal distension (gaseous) | CPT/HCPCS: 99212 ==

== ENCOUNTER 2025-01-27 12:23 | Outpatient (AMB) | payer OTHER, SELFPAY ==
[2025-01-27 12:25] VITALS: BP 112/78; PULSE 120; O2SAT 98; BMI 22.7
--- NOTE | 2025-01-27 12:25 | MHC.PC.OV ---
Vital Signs 01/27/25 12:25 Height 5 ft 3 in Weight 128 lb BMI 22.7 BP 112/78 Blood Pressure Location Lt brachial Position Sitting Pulse 120 H Pulse Source Pulse Oximeter Pulse Oximetry (%) 98 Intake Visit Reasons: PE Allergies Ecitalopram Adverse Reaction (Mild, Uncoded 01/27/25 12:25) Dizziness Medication List - Last Reconciled 01/27/25 by Momo Wright MD cholecalciferol (vitamin D3) 250 mcg PO 2XW 90 days famotidine 20 mg PO BID 90 days ketoconazole 2% 1 appl topical 2XW Lactobacillus rhamnosus GG (Culturelle) 1 cap PO DAILY 90 days plecanatide (Trulance) 3 mg PO DAILY 90 days polyethylene glycol 3350 (Miralax) 17 grams PO DAILY 1 day simethicone (Gas Relief 80 (simethicone)) 80 mg PO TID-QID PRN 30 days Tobacco use date assessed: 01/27/25 Dental Screening Dental Screen Date: 01/27/25 Did you have a dental visit in the last 12 months?: Yes Did you have a dental problem in the last 6 months where you did not have access to dental care?: No Was dental information given to patient?: Patient has dentist HPI PE HPI Details History of Present Illness The patient is a 24-year-old female presenting for Physical exam . Constipation: - The patient reports ongoing constipation and has been diagnosed with irritable bowel syndrome, primarily with constipation. - A different provider prescribed Linzess, which is pending, and referred her to a colorectal specialist. - She has tried Senokot tablets in the past but did not take them consistently or at the recommended dosage. - She occasionally uses MiraLAX powder, but not on a regular schedule. - She notes random episodes of diarrhea, which are likely overflow diarrhea from being backed up. - She experiences associated headaches, migraines, tiredness, and fatigue, which are attributed to the constipation. - She admits to not drinking much water lately. Heartburn: - The patient reports symptoms of heartburn and started taking famotidine twice a day a few days ago. Anxiety: - The patient reports anxiety, which she believes causes her resting pulse to be high, sometimes around 100 bpm. - She was previously prescribed Lexapro for anxiety and felt better while taking it but subsequently stopped. Vitamin D Deficiency: - The patient has a history of low vitamin D levels, with low results noted in 2020, 2022, and 2023. - She has been advised to take supplements but has not been adherent. - Another provider recently sent a prescription for a high-dose vitamin D supplement to be taken twice a week. Medical History: - Irritable bowel syndrome with constipation - Anxiety - Vitamin D deficiency - Migraines Social History: - Fluid Intake: The patient reports not drinking much water lately and often forgets. Health Maintenance - Vaccinations: Patient is to receive the flu vaccine during the visit. - Labs: An order will be placed for fasting lab work. - Follow-up: Patient is scheduled for a follow-up visit in three months to review constipation management, lab results, and the outcome of the colorectal specialist consultation. [place] [facility] - The patient saw another provider, Renee Yanez, last week. - The patient was referred to a colorectal specialist for constipation. Medications - Famotidine: Recently started for heartburn, taken twice daily. - MiraLAX: Taken occasionally for constipation. - Lexapro: Previously taken for anxiety. Patient Instructions - Take one capful of MiraLAX powder mixed in a tall glass of liquid every day for your constipation. - You can also try taking Senokot tablets for a week to help with constipation. - Make sure to drink at least six glasses of water per day. - Continue taking famotidine for your heartburn. - A prescription for Lexapro will be sent to your pharmacy; you can restart it for your anxiety. - Check with your pharmacy for the high-dose Vitamin D prescription that has already been sent. - You need to get blood tests done, but you must be fasting, so you will need to come back for that. - Please come back for a follow-up appointment in three months. - You will receive a flu vaccine today before you leave. Review of Systems - General: No fever no chills - Neurological: No headaches no dizziness - Ear nose throat: No sore throat no hearing difficulty no ear pain - Cardiovascular: No syncope, no chest pain, no palpitations - Gastrointestinal: No nausea vomiting - Endocrine: No polyuria polydipsia no heat intolerance - Genitourinary: No dysuria - Skin: No new complaints Physical Exam General: Cooperative, healthy appearing, comfortable, no acute distress Orientation: Patient oriented x3 Head: Normal to inspection Ears: Within normal limit visually Nose: Normal external nose present Face and sinus: Normal facial exam Eyes: Appearance normal, extraocular movement intact pupils reactive Neck: Normal visual inspection and supple Respiratory: Normal respiratory effort and able to speak in complete sentences. Clear to auscultation, no stridor Cardiovascular: Pulse usually between 80 and 100, S1 and S2 RRR GI: Discomfort upper left area no guarding no rebound bowel sounds positive Skin: Turgor normal, no acute findings Neuro: Patient oriented x3, motor sensory intact, balance intact, tandem pass Extremities: Normal to inspection . [facility] Medical History Family history of thyroid disease in mother Vitamin D deficiency Chronic GERD Right upper quadrant abdominal pain Epigastric pain Surgical History Hx of colonoscopy No pertinent past surgical history Family History Mother Hypothyroidism Social History Housing: House Patient Tobacco Use Status: Never used Tobacco e-Cigarette/Vaping Use: Never Used Second Hand Smoke Exposure: No service: No Current occupational status: employed and student Current occupational exposures/hazards: No Cognitive needs: No Hearing needs: No Vision needs: No Questionnaire PHQ-9 Over the last 2 weeks, how often have you been bothered by any of the following problems? 1. Little interest or pleasure in doing things: not at all 2. Feeling down, depressed, or hopeless: not at all 3. Trouble falling or staying asleep, or sleeping too much: not at all 4. Feeling tired or having little energy: not at all 5. Poor appetite or overeating: not at all 6. Feeling bad about yourself - or that you are a failure or have let yourself or your family down: not at all 7. Trouble concentrating on things, such as reading the newspaper or watching television: not at all 8. Moving or speaking so slowly that other people could have noticed. Or the opposite - being so fidgety or restless that you have been moving around a lot more than usual: not at all 9. Thoughts that you would be better off or of hurting yourself in some way: not at all Total score: 0 Depression Screening Interpretation: Negative Depression Screening Done: Yes 21650 - PHQ-9 Billing: Yes Source: Developed by Drs. Didier Brooks, Calli Ochoa, Rodrigo Crespo and colleagues, with an educational gopal from [employer]. Thrive Questionnaire Date Thrive assessed: 01/27/25 I am a: Patient What is your living situation today?: I have a steady place to live Within the past 12 months, did the food you bought not last and you didn't have the money to get more?: I choose not to answer this question Within the past 12 months, did you worry whether your food would run out before you got money to buy more?: I choose not to answer this question Do you have trouble paying for medicines?: I choose not to answer this question Do you have trouble getting transportation to medical appointments?: No Do you have trouble paying your heating and electricity bill?: I choose not to answer this question Do you have trouble taking care of your child, family member or friend?: I choose not to answer this question Do you have trouble with day-to-day activities such as bathing, preparing meals, shopping, managing finances, etc.?: No Are you currently unemployed and looking for a job?: Yes Are you interested in more education?: I choose not to answer this question Please select the resources that you would like help with: None Currently or been in a relationship where the following occur: I choose not to answer THRIVE Score: 0 AUDIT C Alcohol Use Questionnaire (AUDIT-C) 1. How often do you have a drink containing alcohol?: Never 3. How often do you have six or more drinks on one occasion?: Never Total Score: 0 Score Reviewed/Action Taken: Yes JUSTA-7 AMB Questionnaire JUSTA-7 Date JUSTA - 7 assessed: 01/27/25 Feeling nervous, anxious, or on edge: 3 = Nearly every day Not being able to stop or control worryin = Not at all Worrying too much about different things: 0 = Not at all Trouble relaxin = Several days Being so restless that it is hard to sit still: 0 = Not at all Becoming easily annoyed or irritable: 0 = Not at all Feeling afraid as if something awful might happen: 0 = Not at all Total JUSTA-7 score (0-4 normal; 5-9 mild; 10-14 moderate; 15-21 severe): 4 Source: Developed by Drs. Didier Brooks, Calli Ochoa, Rodrigo Crespo and colleagues, with an educational goapl from [employer]. JUSTA-7 Assessment Billing JUSTA-7 Assessment Tool: JUSTA-7 Assessment 24094 Physical exam (Primary Care) Vital Signs: Last Vital Signs Pulse 120 H 01/27/25 12:25 BP 112/78 01/27/25 12:25 Pulse Ox 98 01/27/25 12:25 BMI result Body Mass Index 22.7 Tobacco/Smoking Status: Tobacco use Status Tobacco use date assessed 01/27/25 01/27/25 12:26 Patient Tobacco Use Status Never used Tobacco 01/27/25 12:26 e-Cigarette/Vaping Use Never Used 01/27/25 12:26 PHQ-9: PHQ-9 Score PHQ-9: Total score 0 01/27/25 12:56 Depression Screening Interpretation: Negative Thrive Assessment: Date of Thrive Assessment Date Thrive assessed 01/27/25 01/27/25 12:26 Currently or been in a relationship where the following occur: I choose not to answer Office Procedures Flu Questionnaire Does the patient have a severe egg allergy?: No Does the patient have severe life threatening allergies?: No Does the patient have a fever or illness today?: No Has the patient ever had Guillain-Lincoln Syndrome?: No Has the patient ever had any past reaction to a flu shot?: No Immunizations Fluarix [id number] (PF) 45 mcg (15 mcg x 3)/0.5 mL IM syringe Performing Provider: Momo Wright MD [place] [facility] Administered by: Bailey Fan MA on 01/27/25 12:59 Dose Route Admin Location Dispensed Lot Number Expiration Date [facility] Drill Operator Automatic 0.5 mL IM Left Deltoid 0.5 mL [id number] 09/19/25 [id number] [employer] VIS Given Date VIS Provided VIS Publication Date 01/27/25 Single Vaccine 24 Eligibility Eligibility Date Funding Source Not [facility] Eligible 01/27/25 Private Coding Level of Care Code Est Pt Level 3 (27137) Est Pt Prev Care 18-39y(74723) Diagnoses Encounter for general adult medical examination with abnormal findings Z00.01 Anxiety, generalized F41.1 Tachycardia R00.0 Chronic idiopathic constipation K59.04 Chronic GERD K21.9 Vitamin D deficiency E55.9 Additional Codes JUSTA-7 Assessment Billing - JUSTA-7 Assessment Tool: JUSTA-7 Assessment 75338 ([id number]) PHQ-9 - 16241 - PHQ-9 Billing: Yes ([id number]) Assessment & Plan Assessment & Plan (1) Encounter for general adult medical examination with abnormal findings: Code(s): Z00.01 - Encounter for general adult medical examination with abnormal findings Category: Medical (2) Anxiety, generalized: Code(s): F41.1 - Generalized anxiety disorder Category: Medical (3) Tachycardia: Code(s): R00.0 - Tachycardia, unspecified Category: Medical (4) Chronic idiopathic constipation: Code(s): K59.04 - Chronic idiopathic constipation Category: Medical (5) Chronic GERD: Code(s): K21.9 - Gastro-esophageal reflux disease without esophagitis Category: Medical (6) Vitamin D deficiency: Code(s): E55.9 - Vitamin D deficiency, unspecified Category: Medical Plan . Constipation: - The patient reports ongoing constipation and has been diagnosed with irritable bowel syndrome, primarily with constipation. - A different provider prescribed Linzess, which is pending, and referred her to a colorectal specialist. - She has tried Senokot tablets in the past but did not take them consistently or at the recommended dosage. - She occasionally uses MiraLAX powder, but not on a regular schedule. - She notes random episodes of diarrhea, which are likely overflow diarrhea from being backed up. - She experiences associated headaches, migraines, tiredness, and fatigue, which are attributed to the constipation. - She admits to not drinking much water lately. Heartburn: - The patient reports symptoms of heartburn and started taking famotidine twice a day a few days ago. Anxiety: - The patient reports anxiety, which she believes causes her resting pulse to be high, sometimes around 100 bpm. - She was previously prescribed Lexapro for anxiety and felt better while taking it but subsequently stopped. Vitamin D Deficiency: - The patient has a history of low vitamin D levels, with low results noted in 2020, 2022, and 2023. - She has been advised to take supplements but has not been adherent. - Another provider recently sent a prescription for a high-dose vitamin D supplement to be taken twice a week. Medical History: - Irritable bowel syndrome with constipation - Anxiety - Vitamin D deficiency - Migraines Social History: - Fluid Intake: The patient reports not drinking much water lately and often forgets. Health Maintenance - Vaccinations: Patient is to receive the flu vaccine during the visit. - Labs: An order will be placed for fasting lab work. - Follow-up: Patient is scheduled for a follow-up visit in three months to review constipation management, lab results, and the outcome of the colorectal specialist consultation. [place] [facility] - The patient saw another provider, Renee Yanez, last week. - The patient was referred to a colorectal specialist for constipation. Medications - Famotidine: Recently started for heartburn, taken twice daily. - MiraLAX: Taken occasionally for constipation. - Lexapro: Previously taken for anxiety. Patient Instructions - Take one capful of MiraLAX powder mixed in a tall glass of liquid every day for your constipation. - You can also try taking Senokot tablets for a week to help with constipation. - Make sure to drink at least six glasses of water per day. - Continue taking famotidine for your heartburn. - A prescription for Lexapro will be sent to your pharmacy; you can restart it for your anxiety. - Check with your pharmacy for the high-dose Vitamin D prescription that has already been sent. - You need to get blood tests done, but you must be fasting, so you will need to come back for that. - Please come back for a follow-up appointment in three months. - You will receive a flu vaccine today before you leave. Orders: Orders Comprehensive [place]. Panel Fast Today E55.9 - Vitamin D deficiency, unspecified, F41.1 - Generalized anxiety disorder, K21.9 - Gastro-esophageal reflux disease without esophagitis, K59.04 - Chronic idiopathic constipation, R00.0 - Tachycardia, unspecified, Z00.01 - Encounter for general adult medical examination with abnormal findings Lipid Panel Today E55.9 - Vitamin D deficiency, unspecified, F41.1 - Generalized anxiety disorder, K21.9 - Gastro-esophageal reflux disease without esophagitis, K59.04 - Chronic idiopathic constipation, R00.0 - Tachycardia, unspecified, Z00.01 - Encounter for general adult medical examination with abnormal findings TSH reflex Free T4 Today E55.9 - Vitamin D deficiency, unspecified, F41.1 - Generalized anxiety disorder, K21.9 - Gastro-esophageal reflux disease without esophagitis, K59.04 - Chronic idiopathic constipation, R00.0 - Tachycardia, unspecified, Z00.01 - Encounter for general adult medical examination with abnormal findings Influenza 5650-9952 Immunization Today Z23 - Encounter for immunization Complete Blood Count Auto Diff Today E55.9 - Vitamin D deficiency, unspecified, F41.1 - Generalized anxiety disorder, K21.9 - Gastro-esophageal reflux disease without esophagitis, K59.04 - Chronic idiopathic constipation, R00.0 - Tachycardia, unspecified, Z00.01 - Encounter for general adult medical examination with abnormal findings Medications: New escitalopram oxalate (Lexapro) 10 mg PO DAILY 90 tabs 0RF anxiety
--- OUTSIDE RECORDS SUMMARY | 2025-01-27 14:38 | XMS_ITS | Clinical Summary ---
Author Organization [facility] Address [address] [place] [address] Care Team Providers Care Grant Officer Name Role Phone Dai Betts MD Primary Care Provider [phone] Source Comments PLEASE NOTE, if this patient [...] Administration Dates Next Due HEP B, PED/ADOL ([id number]) 11/05/2015,07/12/2008 HPV 9 (Gardasil) 11/05/2015 Hep A, [...] Plan of Treatment Not on file Insurance [facility] [employer] PLAN Member Subscriber Plan / Payer (Ef fective 2013-Present) Name:Joie Davenport Relation to Subscriber:Self Name:Joie Davenport Payer ID:[id number] Group ID:[id number] Type:Medicaid Address: [facility] [id number] [place] [id number] Care Teams Grant Officer Relationship Specialty Start Date End Date Dai Betts MD [id number] [place] [id number] PCP - General Pediatrics 02/24/13
== END 2025-01-27 12:58 | disposition home or self-care (01) ==
LOC: HO.HMCC 12:24
PROVIDERS: PCP Internal Medicine; Visit Provider Internal Medicine
DX: Z00.01 Encounter for general adult medical examination with abnormal findings (principal); F41.1 Generalized anxiety disorder; R00.0 Tachycardia, unspecified; K59.04 Chronic idiopathic constipation; K21.9 Gastro-esophageal reflux disease without esophagitis; E55.9 Vitamin D deficiency, unspecified; Z23 Encounter for immunization

== ENCOUNTER → 2025-01-27 12:23 | Outpatient (BNVA) | payer OTHER, SELFPAY | PROVIDERS: PCP Internal Medicine; Visit Provider Internal Medicine | DX: Z00.01 Encounter for general adult medical examination with abnormal findings (principal); E55.9 Vitamin D deficiency, unspecified; F41.1 Generalized anxiety disorder; R00.0 Tachycardia, unspecified; K59.04 Chronic idiopathic constipation; K21.9 Gastro-esophageal reflux disease without esophagitis; Z23 Encounter for immunization | CPT/HCPCS: 90471; 90656; 96127; 99212; 99395 ==

== ENCOUNTER 2025-02-09 10:34 | Outpatient (REF) | payer OTHER, SELFPAY ==
[2025-02-09 12:58] LABS: MANUAL DIFF FLAG NO
[2025-02-09 13:13] LABS: Hematocrit 43.1 % (37.0-47.0); Hemoglobin 13.8 g/dl (12.0-16.0); Imm Gran Abs Auto 0.01 X10*3/uL (0.00-0.03); Imm Gran Pct Auto 0.2 % (0.0-0.4); Lymphocytes Absolute Auto 2.0 X10*3/uL (1.2-4.9); Mean Corpuscular HGB Conc 32.0 g/dl (31.0-35.0); Mean Corpuscular Hemoglobin 29.2 pg (27.0-33.0); Mean Corpuscular Volume 91.3 fL (80.0-98.0); NRBC Abs Auto 0.000 X10*3/uL (0.0-0.012); NRBC Pct Auto 0.0 /100WBC (0.0-0.2); Platelet Count 219 X10*3/uL (160-400); Red Blood Count 4.72 X10*6/uL (4.20-5.50); White Blood Count 5.0 X10*3/uL (4.8-10.8)
[2025-02-09 13:40] LABS: Alanine Aminotransferase 14 U/L (0-31); Albumin Level 4.5 g/dL (3.5-5.0); Alkaline Phosphatase 53 U/L (39-117); Anion Gap 10 (12-20); Aspartate Amino Transferase 25 U/L (5-31); Blood Urea Nitrogen 12 mg/dL (9-16); Calcium 9.1 mg/dL (8.4-10.2); Carbon Dioxide 27 mmol/L (22-29); Chloride 107 mmol/L (96-108); Cholesterol 155 mg/dL (<200); Estimated Glomerular Filt Rate > 60; HDL Cholesterol 43 mg/dL (>40); Potassium 5.2 mmol/L (3.3-5.1); Sodium 139 mmol/L (135-145); Total Protein 7.3 g/dL (6.5-8.0); Triglycerides 115 mg/dL (<150)
== END 2025-02-09 10:35 | disposition home or self-care (01) ==
LOC: HO.HMGCLDS 10:34
PROVIDERS: PCP Internal Medicine; Visit Provider Internal Medicine
DX: Z00.00 Encounter for general adult medical examination without abnormal findings (principal); K59.04 Chronic idiopathic constipation; K21.9 Gastro-esophageal reflux disease without esophagitis; E55.9 Vitamin D deficiency, unspecified; F41.1 Generalized anxiety disorder; R00.0 Tachycardia, unspecified
CPT/HCPCS: 36415; 80053; 80061; 84443; 85025